=== PATIENT | female | born 1975 | race Caucasian/White ===

== ENCOUNTER → 2021-07-06 13:12 | Outpatient (BNVA) | payer OTHER, SELFPAY | PROVIDERS: PCP Internal Medicine; Visit Provider Nurse Practitioner Family | DX: R06.83 Snoring (principal); R40.0 Somnolence; G35 Multiple sclerosis; Z79.899 Other long term (current) drug therapy | CPT/HCPCS: 99202 ==

== ENCOUNTER → 2021-09-10 13:47 | Outpatient (REF) | payer OTHER, SELFPAY | LOC: HO.SL 13:47 | PROVIDERS: PCP Internal Medicine; Visit Provider Nurse Practitioner Family | DX: R06.83 Snoring (principal); R40.0 Somnolence | CPT/HCPCS: 95806 ==

== ENCOUNTER 2023-10-15 16:42 | Outpatient (AMB) | payer OTHER, SELFPAY ==
--- NOTE | 2023-10-15 11:00 | MHC.OFFVISPS ---
Intake Intake Visit Reasons: Depression Allergies No Known Allergies Allergy (Verified 07/06/21 13:40) HPI- Psychiatric Chief Complaint: Depression HPI Narrative: pt describes feeling depression and anxiety, in order to cope she removes self from situation, easily agitated, no side effects from cymbalta , depression 6 or 7 still can't sit outside, feels blue and gloomy, no SI, no HI, pt reports anxiety - can't do something, heart races and thoughts race, She notices in the summer she feels better, sometimes sleeps all day and up all night for 1 month, 3 days out of 7, sleep is terrible, barely sleeps and wakes up constantly, catches self zoning out depression and anxiety dx especially since MS symptoms interfered with work and caused increased depression in 2014, 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 Counseling provided to the patient/caregiver as outlined below. Addressed patient/caregiver concerns regarding current medication regime including effective adherence. Addressed patient/caregiver concerns regarding diagnosis and prognosis including accuracy of diagnosis, prognosis over time, impact of diagnosis. Addressed patient/caregiver concerns regarding impact of recent stressors. PFSH Family History (Updated 07/06/21 @ 13:44 by RADHA King) Mother Diabetes Social History (Updated 07/06/21 @ 13:43 by RADHA King) Alcohol intake: current Alcohol intake frequency: a few times a month Alcohol type: beer Patient Tobacco Use Status: Never used Tobacco Coding
--- NOTE | 2023-10-15 15:56 | A.OFFPSYCH_ITS ---
Intake Intake Visit Reasons: Depression, JESSENIA (generalized anxiety disorder), Panic anxiety syndrome Allergies No Known Allergies Allergy (Verified 07/06/21 13:40) Medication List - Last Reconciled 10/16/23 by Sabiha Ramirez, BRAN albuterol sulfate mg inhalation Q4H PRN albuterol sulfate 90 mcg/actuation 2 puffs inhalation Q6H PRN azelastine 0.05% 1 drp ophthalmic (eye) BID PRN baclofen 20 mg PO TID clonazepam 0.5 mg PO TID clonazepam 0.5 mg PO TID duloxetine 60 mg PO DAILY fluticasone furoate-vilanterol 200-25 mcg/dose (Breo Ellipta) 1 ea inhalation DAILY modafinil 200 mg PO DAILY oxybutynin chloride ER 5 mg PO DAILY sennosides (senna) 8.6 mg PO DAILY zolpidem 5 mg PO PRN zolpidem 10 mg orally take 1/2 to 1 tablet at bedtime as needed for sleep PRN; HPI- Psychiatric Chief Complaint: Depression, JESSENIA (generalized anxiety disorder), Panic anxiety syndrome HPI Narrative: pt reports she missed 2 days of cymbalta because she ran out. she got a renewed rx fro clonazepam from neurologist; pt reports increased sadness recent due to betrayal by a friend and feeling taken advantage or her generous nature; has loaned friend money several times and has not gotten it back ; adult daughter and family living with her but not helping with the cost of rents and utilities even though the cost has gone up. pt reports getting good support from parents. feels meds help. does not want to change medications today; she is on wait list for therpy; discussed coping with stress of friends and family. 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 No IPLOC no current therapist-on wait list Panic attacks: Yes Agoraphobia: Yes Separation anxiety disorder: No Social phobia: No Specific phobia: No Hypochondriasis: No Body dysmorphic disorder: No Obsessive compulsive disorder: No Generalized anxiety: Yes Post traumatic stress disorder: No Acute stress disorder: No Previous psychiatric history: Yes Previous inpatient psychiatric hospitalization: No Other previous psychiatric treatment programs: none History of suicidal ideation: No History of suicide attempt: No Medically hospitalized: Yes History of self injurious behavior: No History of violence: No Current/previous psychiatrist: [facility] since 2019 Current/previous therapist: lino Ruiz in past Kylah Baker before that - on wait list for new Subjective Subjective Subjective Medication Compliance: Yes Side effects from medications: No Review of Systems Medical Review of Systems: unchanged Mental Status Exam Mental Status Exam Patient Appearance: Well Grooomed and Appropriate Patient Orientation: Person, Place, Time and Situation Level of Consciousness: Awake and Appropriate Patient Behavior: Appropriate and Cooperative Mood Description: Sad Affect Description: Sad Patient Cognition Impaired: No Ability to Follow Directions: Good Speech Pattern: Clear and Coherent Memory Description: Intact Hallucinations: None Delusions: Not Present Thought Process: Intact Thought Content: positive for Intact Judgement: Fair Telehealth Telehealth Telehealth Platform: Other (please specify) ([email or web address] (fka [email or web address])) Location of provider rendering services: practice address Location of patient: address on file Patient Identification confirmed using: Name, : Yes Telehealth method: video Patient verbally consented to treatment: Yes Patient verbally consented to billing insurance company: Yes Patient informed of any privacy concerns related to visit: Yes Minutes spent on Phone/Video with Pt.: 30 Assessment and Plan Assessment & Plan (1) Generalized anxiety disorder: Code(s): F41.1 - Generalized anxiety disorder (2) Panic disorder: Code(s): F41.0 - Panic disorder [episodic paroxysmal anxiety] Plan 48 yo mother with depresssion and anxiety in context of MS and chronic pain Medications: New duloxetine 60 mg PO DAILY 30 caps 3RF zolpidem 10 mg orally take 1/2 to 1 tablet at bedtime as needed for sleep PRN; 30 tabs 0RF sleep clonazepam 0.5 mg PO TID 90 tabs 2RF Counseling and coordination of Care Pt. Self Management counseling: Maintenance-social rhythm, Sleep hygiene, Behavior activation, Cognitive restructuring, General coping skills and Greif counseling Medication management counseling: Effectiveness, Side effects, Dosing range, Duration, Drug interaction and Adherence Diagnosis and Prognosis Counseling: Accuracy of diagnosis, Prognosis over time, Impact of diagnosis on life functions, Impact of family relationship, Pr oblematic behaviors secondary to diagnosis and Adequacy of current interventions Details: I spent 45 minutes reviewing the record, seeing the patient and documenting in the medical record. Counseling provided to the patient/caregiver as outlined below. Addressed patient/caregiver concerns regarding current medication regime including effective adherence. Addressed patient/caregiver concerns regarding diagnosis and prognosis including accuracy of diagnosis, prognosis over time, impact of diagnosis. Addressed patient/caregiver concerns regarding impact of recent stressors. PFSH Medical History (Updated 10/16/23 @ 10:14 by Sabiha Ramirez APRN) Asthma Multiple sclerosis Surgical History (Updated 10/16/23 @ 10:14 by Sabiha Ramirez APRN) History of hip replacement Family History (Updated 07/06/21 @ 13:44 by RADHA King) Mother Diabetes Social History (Updated 07/06/21 @ 13:43 by RADHA King) Alcohol intake: current Alcohol intake frequency: a few times a month Alcohol type: beer Patient Tobacco Use Status: Never used Tobacco Social History: lies with youngest daughter who is on grade school; older daughter and her family recently moved in- very stressful; pts parents are very supportive Substance History: none Trauma History: none reported Coding Level of Care Code Tele Est Pt Level 3 (92238) Tele Therapy 30m w/E&M (69885) Diagnoses Generalized anxiety disorder F41.1 Panic disorder F41.0 Comment CBT to address betrayal nd disappointment; prob solving therapy re; boundary setting
== END 2023-10-15 16:43 | disposition home or self-care (01) ==
LOC: HO.HOP 16:42
PROVIDERS: PCP Internal Medicine; Visit Provider Clinical Nurse Specialist Psychiatric/Mental Health
DX: F41.1 Generalized anxiety disorder (principal); F41.0 Panic disorder [episodic paroxysmal anxiety]
CPT/HCPCS: 90833; 99213

== ENCOUNTER → 2023-10-15 16:42 | Outpatient (BNVA) | payer OTHER, SELFPAY | PROVIDERS: PCP Internal Medicine; Visit Provider Clinical Nurse Specialist Psychiatric/Mental Health ==

== ENCOUNTER 2023-11-10 13:55 | Outpatient (AMB) | payer OTHER, SELFPAY ==
--- NOTE | 2023-11-10 13:43 | MHC.OFFVISPS ---
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 Allergies No Known Allergies Allergy (Verified 07/06/21 13:40) Medication List - Last Reconciled 11/10/23 by Sabiha Ramirez APRN albuterol sulfate mg inhalation Q4H PRN albuterol sulfate 90 mcg/actuation 2 puffs inhalation Q6H PRN baclofen 20 mg PO TID clonazepam 0.5 mg PO TID duloxetine 60 mg PO DAILY fluticasone furoate-vilanterol 200-25 mcg/dose (Breo Ellipta) 1 ea inhalation DAILY modafinil 200 mg PO DAILY montelukast 10 mg PO DAILY oxybutynin chloride ER 5 mg PO DAILY oxybutynin chloride ER 10 mg PO DAILY sennosides (senna) 8.6 mg PO DAILY HPI- Psychiatric Chief Complaint: depression HPI Narrative: Pt reports depression and anxiety continue; she feels better than last appt but still struggling with frequent anxiety; feels low mood, low energy, anhedonia, worry. she dneies SI ro HI. no changes to medical medications or worsenign of medical issues; her older daughter is moving out which will reduce her stress and her older son is moving in and she believes he will be more help than not. 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 No IPLOC no current therapist-on wait list Mental Status Exam Mental Status Exam Patient Appearance: Well Grooomed and Appropriate Patient Orientation: Person, Place, Time and Situation Level of Consciousness: Awake and Alert Patient Behavior: Appropriate Mood Description: Anxious and Sad Affect Description: Anxious and Sad Patient Cognition Impaired: No Ability to Follow Directions: Good Speech Pattern: Clear and Appropriate Memory Description: Intact Hallucinations: None Delusions: Not Present Thought Process: Intact and Goal Oriented Thought Content: positive for Intact and positive for Goal Oriented Judgement: Fair Telehealth Telehealth Telehealth Platform: Other (please specify) ([email or web address]) Location of provider rendering services: practice address Location of patient: address on file Patient Identification confirmed using: Name, : Yes Telehealth method: video Patient verbally consented to treatment: Yes Patient verbally consented to billing insurance company: Yes Patient informed of any privacy concerns related to visit: Yes Minutes spent on Phone/Video with Pt.: 28 Assessment and Plan Assessment & Plan (1) Major depressive disorder, recurrent, moderate: Status: Acute Code(s): F33.1 - Major depressive disorder, recurrent, moderate (2) JESSENIA (generalized anxiety disorder): Status: Acute Code(s): F41.1 - Generalized anxiety disorder Plan increase duloxetine to 90mg (60mg and 30 mg ) increase clonazepam 0.5mg to QID advised to use with care due to risk of sedation; she verbalized an understanding Medications: New duloxetine (Cymbalta) 30 mg PO DAILY 30 caps 2RF Changed From clonazepam 0.5 mg PO TID 90 tabs 2RF To clonazepam 0.5 mg PO QID 120 tabs 2RF Counseling and coordination of Care Medication management counseling: Effectiveness, Side effects, Dosing range, Duration, Drug interaction and Adherence Diagnosis and Prognosis Counseling: Accuracy of diagnosis, Prognosis over time, Impact of diagnosis on life functions, Impact of family relationship, Problematic behaviors secondary to diagnosis and Adequacy of current interventions Details: I spent 35 minutes reviewing the record, seeing the patient and documenting in the medical record. Counseling provided to the patient/caregiver as outlined below. Addressed patient/caregiver concerns regarding current medication regime including effective adherence. Addressed patient/caregiver concerns regarding diagnosis and prognosis including accuracy of diagnosis, prognosis over time, impact of diagnosis. Addressed patient/caregiver concerns regarding impact of recent stressors. PFSH Medical History (Updated 11/10/23 @ 14:30 by Sabiha Ramirez APRN) Asthma Multiple sclerosis Surgical History (Updated 10/16/23 @ 10:14 by Sabiha Ramirez APRN) History of hip replacement Family History (Updated 07/06/21 @ 13:44 by Jordon Estrada [facility]) Mother Diabetes Social History (Updated 07/06/21 @ 13:43 by RADHA King) Alcohol intake: current Alcohol intake frequency: a few times a month Alcohol type: beer Patient Tobacco Use Status: Never used Tobacco Social History: lies with youngest daughter who is on grade school; older daughter and her family recently moved in- very stressful; pts parents are very supportive Substance History: none Trauma History: none reported Coding Level of Care Code Est Pt Level 4 (70048) Diagnoses Major depressive disorder, recurrent, moderate F33.1 JESSENIA (generalized anxiety disorder) F41.1
== END 2023-11-10 13:56 | disposition home or self-care (01) ==
LOC: HO.HOP 13:55
PROVIDERS: PCP Internal Medicine; Visit Provider Clinical Nurse Specialist Psychiatric/Mental Health
DX: F33.1 Major depressive disorder, recurrent, moderate (principal); F41.1 Generalized anxiety disorder
CPT/HCPCS: 99214

== ENCOUNTER → 2023-11-10 13:55 | Outpatient (BNVA) | payer OTHER, SELFPAY | PROVIDERS: PCP Internal Medicine; Visit Provider Clinical Nurse Specialist Psychiatric/Mental Health | DX: F33.1 Major depressive disorder, recurrent, moderate (principal); F41.1 Generalized anxiety disorder | CPT/HCPCS: 99212 ==

== ENCOUNTER 2024-01-06 13:59 | Outpatient (AMB) | payer OTHER, SELFPAY ==
--- NOTE | 2024-01-06 10:47 | MHC.OFFVISPS ---
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 Allergies No Known Allergies Allergy (Verified 07/06/21 13:40) Medication List - Last Reconciled 01/06/24 by Sabiha Ramirez APRN albuterol sulfate mg inhalation Q4H PRN albuterol sulfate 90 mcg/actuation 2 puffs inhalation Q6H PRN baclofen 20 mg PO TID clonazepam 1 mg orally take 1/2 tablet in am, take one tablet at noon and 1 tablet at bedtime in addition to 0.25mg ODT PRN panic; duloxetine 120 mg (2 x 60 mg) PO DAILY fluticasone furoate-vilanterol 200-25 mcg/dose (Breo Ellipta) 1 ea inhalation DAILY modafinil 200 mg PO DAILY montelukast 10 mg PO DAILY oxybutynin chloride ER 5 mg PO DAILY oxybutynin chloride ER 10 mg PO DAILY sennosides (senna) 8.6 mg PO DAILY HPI- Psychiatric Chief Complaint: depression HPI Narrative: pt reports mood much improved since increase in cymbalta; no side effects; less sadness, less anxiety, no SI or HI; family support good Past Psychiatric History: Pt has long hx of depression and anxiety dx, MS symptoms interfered with work and caused increased depression in 2015, 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 No IPLOC no current therapist-on wait list Subjective Subjective Subjective Medication Compliance: Yes Side effects from medications: No Review of Systems Medical Review of Systems: unchanged Mental Status Exam Mental Status Exam Patient Appearance: Appropriate Patient Orientation: Person, Place, Time and Situation Level of Consciousness: Awake and Alert Patient Behavior: Appropriate Mood Description: Calm Patient Cognition Impaired: No Ability to Follow Directions: Good Speech Pattern: Clear Hallucinations: None Delusions: Not Present Thought Process: Intact Thought Content: positive for Intact Judgement: Good Telehealth Telehealth Telehealth Platform: Other (please specify) ([email or web address]) Location of provider rendering services: practice address Location of patient: address on file Patient Identification confirmed using: Name, : Yes Telehealth method: video Patient verbally consented to treatment: Yes Patient verbally consented to billing insurance company: Yes Patient informed of any privacy concerns related to visit: Yes Minutes spent on Phone/Video with Pt.: 20 Assessment and Plan Assessment & Plan (1) JESSENIA (generalized anxiety disorder): Status: Acute Code(s): F41.1 - Generalized anxiety disorder (2) Major depressive disorder, recurrent, moderate: Status: Acute Code(s): F33.1 - Major depressive disorder, recurrent, moderate Plan renew medications continue same regimen return in 6 months call sooner if needed Medications: Changed From clonazepam 1 mg orally take 1/2 tablet in am, take one tablet at noon and 1 tablet at bedtime in addition to 0.25mg ODT PRN panic; 75 tabs 1RF To clonazepam 1 mg PO TID 90 tabs 4RF Refilled duloxetine 120 mg (2 x 60 mg) PO DAILY 60 caps 3RF Counseling and coordination of Care Details: I spent [] minutes reviewing the record, seeing the patient and documenting in the medical record. Counseling provided to the patient/caregiver as outlined below. Addressed patient/caregiver concerns regarding current medication regime including effective adherence. Addressed patient/caregiver concerns regarding diagnosis and prognosis including accuracy of diagnosis, prognosis over time, impact of diagnosis. Addressed patient/caregiver concerns regarding impact of recent stressors. PFSH Medical History (Updated 11/10/23 @ 14:30 by Sabiha Ramirez APRN) Asthma Multiple sclerosis Surgical History (Updated 10/16/23 @ 10:14 by Sabiha Ramirez APRN) History of hip replacement Family History (Updated 07/06/21 @ 13:44 by RADHA King) Mother Diabetes Social History (Updated 07/06/21 @ 13:43 by RADHA King) Alcohol intake: current Alcohol intake frequency: a few times a month Alcohol type: beer Patient Tobacco Use Status: Never used Tobacco Social History: lies with youngest daughter who is on grade school; older daughter and her family recently moved in- very stressful; pts parents are very supportive Substance History: none Trauma History: none reported Coding Level of Care Code Tele Est Pt Level 4 (98202) Diagnoses JESSENIA (generalized anxiety disorder) F41.1 Major depressive disorder, recurrent, moderate F33.1
== END 2024-01-06 14:01 | disposition home or self-care (01) ==
LOC: HO.HOP 13:59
PROVIDERS: PCP Internal Medicine; Visit Provider Clinical Nurse Specialist Psychiatric/Mental Health
DX: F41.1 Generalized anxiety disorder (principal); F33.1 Major depressive disorder, recurrent, moderate
CPT/HCPCS: 99214

== ENCOUNTER → 2024-01-06 13:59 | Outpatient (BNVA) | payer OTHER, SELFPAY | PROVIDERS: PCP Internal Medicine; Visit Provider Clinical Nurse Specialist Psychiatric/Mental Health ==

== ENCOUNTER 2024-07-05 12:03 | Outpatient (AMB) | payer OTHER, SELFPAY ==
--- NOTE | 2024-07-05 10:53 | A.OFFPSYCH_ITS ---
Intake Intake Visit Reasons: depression Clinical Operations Manager Required: No Allergies No Known Allergies Allergy (Verified 07/06/21 13:40) Medication List - Last Reconciled 07/05/24 by Sabiha Ramirez APRN albuterol sulfate mg inhalation Q4H PRN albuterol sulfate 90 mcg/actuation 2 puffs inhalation Q6H PRN baclofen 20 mg PO TID clonazepam 1 mg PO TID duloxetine 120 mg (2 x 60 mg) PO DAILY fluticasone furoate-vilanterol 200-25 mcg/dose (Breo Ellipta) 1 ea inhalation DAILY modafinil 200 mg PO DAILY montelukast 10 mg PO DAILY oxybutynin chloride ER 5 mg PO DAILY oxybutynin chloride ER 10 mg PO DAILY sennosides (senna) 8.6 mg PO DAILY HPI- Psychiatric Chief Complaint: depression HPI Narrative: Pt reports stable mood. she is consistent with cymbalta 60 mg BId and clonzepam 1mg TID. she reports coping well overall; she has less anxiety. she does have trouble falling asleep; she has used ambien which does help her sleep but she is incontinent with it. she would like to try something else for sleep and we discussed a low dose of lunesta which she is in agreement. No SI no HI. 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 No IPLOC no current therapist-on wait list Subjective Subjective Subjective Medication Compliance: Yes Side effects from medications: No Review of Systems Medical Review of Systems: unchanged Mental Status Exam Mental Status Exam Patient Orientation: Person, Place, Time and Situation Level of Consciousness: Awake Patient Behavior: Appropriate Mood Description: Calm Affect Description: Calm Patient Cognition Impaired: No Ability to Follow Directions: Good Speech Pattern: Clear Memory Description: Intact Hallucinations: None Delusions: Not Present Thought Process: Intact and Goal Oriented Thought Content: positive for Intact and positive for Goal Oriented Judgement: Good Telehealth Telehealth Telehealth Platform: Telephone Location of provider rendering services: practice address Location of patient: address on file Patient Identification confirmed using: Name, : Yes Telehealth method: voice only Patient verbally consented to treatment: Yes Patient verbally consented to billing insurance company: Yes Patient informed of any privacy concerns related to visit: Yes Minutes spent on Phone/Video with Pt.: 15 Assessment and Plan Assessment & Plan (1) JESSENIA (generalized anxiety disorder): Status: Acute Code(s): F41.1 - Generalized anxiety disorder (2) Insomnia disorder with non-sleep disorder mental comorbidity: Status: Acute Code(s): G47.00 - Insomnia, unspecified (3) Major depressive disorder, recurrent, moderate: Status: Acute Code(s): F33.1 - Major depressive disorder, recurrent, moderate Plan continue cymbalta 60mg BID continue clonazepam 1 mg TID trial of lunesta 1 mg at bedtime return in 4 months Medications: New eszopiclone (Lunesta) 1 mg PO BEDTIME 30 tabs 3RF Refilled clonazepam 1 mg PO TID 90 tabs 4RF duloxetine 120 mg (2 x 60 mg) PO DAILY 60 caps 3RF Counseling and coordination of Care Pt. Self Management counseling: Mod caffeine/ETOH intake and Sleep hygiene Medication management counseling: Effectiveness, Side effects, Dosing range, Duration, Drug interaction and Adherence Diagnosis and Prognosis Counseling: Accuracy of diagnosis, Prognosis over time, Impact of diagnosis on life functions, Impact of family relationship, Problematic behaviors secondary to diagnosis and Adequacy of current interventions Details: I spent 25 minutes reviewing the record, seeing the patient and documenting in the medical record. Counseling provided to the patient/caregiver as outlined below. Addressed patient/caregiver concerns regarding current medication regime including effective adherence. Addressed patient/caregiver concerns regarding diagnosis and prognosis including accuracy of diagnosis, prognosis over time, impact of diagnosis. Addressed patient/caregiver concerns regarding impact of recent stressors. PFSH Medical History (Updated 07/05/24 @ 11:11 by Sabiha Ramirez APRN) Asthma Multiple sclerosis Surgical History (Updated 10/16/23 @ 10:14 by Sabiha Ramirez APRN) History of hip replacement Family History (Updated 07/06/21 @ 13:44 by RADHA King) Mother Diabetes Social History (Updated 07/06/21 @ 13:43 by RADHA King) Alcohol intake: current Alcohol intake frequency: a few times a month Alcohol type: beer Patient Tobacco Use Status: Never used Tobacco Social History: lies with youngest daughter who is on grade school; older daughter and her family recently moved in- very stressful; pts parents are very supportive Substance History: none Trauma History: none reported Coding Level of Care Code Tele Est Pt Level 3 (38709) Diagnoses JESSENIA (generalized anxiety disorder) F41.1 Insomnia disorder with non-sleep disorder mental comorbidity G47.00 Major depressive disorder, recurrent, moderate F33.1
--- OUTSIDE RECORDS SUMMARY | 2024-07-05 13:43 | XMS_ITS | Clinical Summary ---
Author Organization [facility] Address [address] [place] [address] Phone Care Team Providers Care Divinity Teacher Name Role Phone Shabnam Jernigan MD Primary Care Provider [phone] Allergies No known active allergies Medications albuterol 2.5 mg /3 mL (0.083 %) nebulizer solution Inhale 3 mL (2.5 mg total) by mouth. 05/04/19 22 Active baclofen (LIORESAL) 10 mg tablet Take 2 tablets (20 mg total) by mouth. 10/29/19 22 Active clonazePAM (KlonoPIN) 1 mg tablet TAKE 1/2 TABLET THREE TIMES A DAY 06/08/19 22 Active levocetirizine (XYZAL) 5 mg tablet Take 1 tablet (5 mg total) by mouth. 11/30/19 21 Active modafiniL (PROVIGIL) 200 mg tablet Take 1 tablet (200 mg total) by mouth. 07/06/19 21 Active montelukast (SINGULAIR) 10 mg tablet TAKE 1 TABLET BY MOUTH EVERY DAY AT BEDTIME FOR 360 DAYS 06/16/19 21 Active oxybutynin XL (DITROPAN-XL) 5 mg 24 hr tablet 03/03/20 21 Active sodium chloride 0.9 % parenteral solution 250 mL with ocrelizumab 30 mg/mL solution Infuse into a venous catheter. Active albuterol HFA (PROAIR HFA ; PROVENTIL HFA ; VENTOLIN HFA) 90 mcg/actuation inhaler INHALE 2 PUFFS INTO THE LUNGS EVERY 6 HOURS NEEDED FOR COUGH, WHEEZING, OR SHORTNESS OF BREATH. 8.5 each 5 04/07/20 24 Active fluticasone-umec lidinium-vilante rol (Trelegy Ellipta) 200-62.5-25 mcg inhaler Inhale 1 puff (200 mcg total) by mouth 1 (one) time each day. Rinse mouth with water after use to reduce aftertaste and incidence of candidiasis. Do not swallow. Active azelastine (ASTELIN) 137 mcg (0.1 %) nasal sprayIndications :Multiple sclerosis (CMS/HCC),Modera te persistent asthma, uncomplicated USE 2 SPRAYS IN EACH NARE DAILY FOR 30 DAYS DIRECTED 16 mL 07/02/19 25 025 Active azelastine (ASTELIN) 137 mcg (0.1 %) nasal sprayIndications :Multiple sclerosis (CMS/HCC),Modera te persistent asthma, uncomplicated USE 2 SPRAYS IN EACH NARE DAILY FOR 30 DAYS DIRECTED 16 mL 05/21/19 25 025 Discontinued Active Problems Problem Noted Date Diagnosed Date Atypical squamous cells of u ndetermined significance (ASCUS) on Papanicolaou smear of cervix 02/07/2021 Overview (06/02/2022): 01/2021 PAP ASCUS, + HPV ( Neg 16/18/45) Plan: Per [facility]: repeat Co-testing in one year Fatigue 08/12/2019 Myelopathic pain syndrome 08/12/2019 Spasticity 08/12/2019 Nicotine dependence, uncomplicated 04/01/2019 Primary osteoarthritis of left hip 07/04/2016 Overview (06/02/2022): [facility] 11/11/14 - progressive arthritic changes left hip; consider followup orthopedic consultation and nonemergent left Hip MRI to assess for avascular necrosis. Constipation due to pain medication 06/16/2015 GERD (gastroesophageal reflux disease) 4 Liver lesion 10/11/2013 Overview (06/02/2022): 05/2012 c/w hemangioma Multiple sclerosis 07/14/2012 Overview (06/02/2022): MRI C-spine at [facility] 06/2012 - multiple lesions. Seen by Dr. Garner 01/25/2021 Followed by [address] , 1st floor Recevies Botox injections Asthma 06/09/2012 Anxiety 11/29/2011 Depression 09/05/2011 Encounters Date Type Department Care Team Description 06/22/2024 8:45 AM EST Office Visit Pulmonolgy - [place] [address] [place] [phone] Luz Maria Mayo MD Moderate persistent asthma, unspecified whether complicated (Primary Dx) 05/12/2024 1:30 PM EST Office Visit [facility] - [place] [address] [place] [phone] Ghazala Lowry, VIJAYA Multiple sclerosis (CMS/HCC) (Primary Dx) from Last 3 Months Immunizations Name Administration Dates Next Due Pfizer SARS-CoV-2 COVID-19, mRNA, LNP-S, preservative free 09/02/2020,08/12/2020 Surgical History Surgery Date Site/Laterality Comments OTHER SURGICAL HISTORY 07/16/2016 Left PROCEDURE: NV ARTHRP ACETBLR/PROX FEM PROSTC AGRFT/ALGRFT; COMMENT: [facility] OTHER SURGICAL HISTORY 2016 PROCEDURE: HISTORY OTHER; COMMENT: Intrathecal pump ( Baclofen) HIP SURGERY PROCEDURE:HIP SURGERY BACLOFEN PUMP IMPLANTATION PROCEDURE:BACLOFEN PUMP IMPLANTATION Medical History Medical History Date Comments Depression 09/05/2011 DX:Depression Anxiety 11/29/2011 DX:Anxiety Asthma 06/09/2012 DX:Asthma GERD (gastroesophageal reflux disease) 4 DX:GERD (gastroesophageal reflux disease) Constipation due to pain medication 06/16/2015 DX:Constipation due to pain medication MS (congenital mitral stenosis) DX:MS (congenital mitral stenosis) Multiple sclerosis (CMS/HCC) DX: Multiple sclerosis (HCC) Acute stress reaction DX:Acute s tress reaction Depression DX:Depression Weight loss DX:Weight loss Anxiety DX:Anxiety Asthma DX:Asthma Demyelinating disease (CMS/HCC) 07/13/2012 DX:Demyelinating disease (HCC) Multiple sclerosis (CMS/HCC) 03/16/2013 DX: Multiple sclerosis (HCC) Family History Medical History Relation Name Comments Diabetes Maternal Grandmother Diabetes type I Maternal Grandmother Asthma Mother Diabetes Mother Diabetes type I Mother Asthma Son Breast cancer Neg Hx Colon cancer Neg Hx Heart attack Neg Hx Multiple sclerosis Neg Hx Ovarian cancer Neg Hx Uterine cancer Neg Hx Relation Name Status Comments Brother x3 Alive Father Maternal Grandmother Mother Sister x3 Alive Son Social History Tobacco Use Types Packs/Day Years Used Date Smoking Tobacco: Some Days Smokeless Tobacco: Never Tobacco Cessation:Ready to Q uit: Not Asked; Counseling Given: Not Answered Comments:Smoking 3 cigs daily Alcohol Use Standard Drinks/Week Comments Yes 0 (1 standard drink = 0.6 oz pur e alcohol) Comments Unknown Sex and Gender Information Value Date Recorded Sex Assigned at Not on file Legal Sex Female 2:14 AM EST Gender Identity Not on file Sexual Orientation Not on file Obstetrics History Last Filed Vital Signs Vital Sign Reading Time Taken Comments Blood Pressure 134/80 06/22/2024 8:50 AM EST Pulse 88 06/22/2024 8:50 AM EST Temperature 36.3 ??C (97.4 ??F) 06/22/2024 8:50 AM ES T Respiratory Rate 16 06/22/2024 8:50 AM EST Oxygen Saturation 97% 06/22/2024 8:50 AM EST Inhaled Oxygen Concentration - - Weight 52.7 kg (116 lb 3.2 oz) 06/22/2024 8:50 A M EST Height 157.5 cm (5' 2 ) 06/22/2024 8:50 AM EST Body Mass Index 21.25 06/22/2024 8:50 AM EST Plan of Treatment Upcoming Encounters Date Type Department Care Team (Latest Contact Info) Description 07/21/2024 11:00 AM EDT Ancillary Procedure Pulmonolgy - [place] [address] [place] [phone] Yessica Escalante 07/21/2024 2:45 PM EDT Evaluation [facility] Speech Therapy [address] [place] [phone] Malinda Healy, INSTRUMENT SETTER 08/25/2024 10:00 AM EDT Appointment [facility] - [place] [address] [place] [phone] 08/25/2024 10:30 AM EDT Office Visit [facility] - [place] [address] [place] [phone] Ghazala Lowry, VIJAYA [address] [place] [address] [place] [address] 12/21/2024 9:45 AM EDT Office Visit Pulmonolgy - [place] [address] [place] [phone] Luz Maria Mayo MD [address] [place] [address] Health Maintenance Due Date Last Done Comments Hepatitis A Vaccines (1 of 2 - Risk 2-dose series) 1992 Pneumococcal Vaccine: 50+ Years (2 of 2 - PCV) 02/05/2019 02/05/2018 Pneumococcal Vaccine: Pediatrics (0 to 5 Years) and At-Risk Patients (6 to 64 Years) (2 of 2 - PCV) 02/05/2019 02/05/2018 Breast Cancer Screening 03/03/2021 03/03/2019 Cholesterol Screening (Lipid Panel) 04/05/2022 Colorectal Cancer Screening: Colonoscopy 04/05/2022 Depression Screening 04/05/2022 Medicare Annual Wellness Visit 04/05/2022 Social Influencers of Health Screening 04/05/2022 Zoster Vaccines (1 of 2) 07/10/2023 09/20/2020, 04/0 04/2020 COVID-19 Vaccine ( season) 2023 02/28/2021, 09/02/2020, 08/12/2020 Influenza Vaccine (#1) 2023 2, 04/28/2011, 02/13/2011 Cervical Cancer Screening: Pap Smear 01/26/2024 01/25/2021 DTaP,Tdap,and Td Vaccines (5 - Td or Tdap) 02/06/2028 02/05/2018, 10/31/2015, 05/27/2011, Additional history exists Hepatitis B Vaccines Completed 02/13/2012, 11/06/2011, 10/07/2011 HIV Screening Completed 02/04/2014 Hepatitis C Screening Completed 06/07/2015 Varicella Vaccines Aged Out 09/20/2020, 07/27/2020 No longer eligible based on patient's age to complete this topic HIB Vaccines Aged Out No longer eligi ble based on patient's age to complete this topic HPV Vaccines Aged Out No longer eligi ble based on patient's age to complete this topic IPV Vaccines Aged Out No longer eligi ble based on patient's age to complete this topic MMR Vaccines Aged Out No longer eligi ble based on patient's age to complete this topic Meningococcal ACWY Vaccine Aged Out N o longer eligible based on patient's age to complete this topic Meningococcal B Vacine Aged Out No lo nger eligible based on patient's age to complete this topic RSV Immunization Patients Under 20 months Aged Out No longer eligible based on patient's age to complete this topic Procedures Procedure Name Priority Date/Time Associated Diagnosis Comments PAP SMEAR Routine 01/25/2021 DX MAMMO INCL CAD BI Routine 03/03/2019 2:30 PM EST Nipple discharge Encounter for screening mammogram for malignant neoplasm of breast from Last 3 Months or Most Recently Relevant to Health Maintenance Results * Pap smear (01/25/2021) 01/25/2021 Narrative HISTORICAL TESTING LAB RESULTING AGENCY - 02/02/2021 4:01 PM EDT [id number] THINPREP PAP, IMAGED: ATYPICAL SQUAMOUS CELLS OF UNDETERMINED SIGNIFICANCE (ASCUS) . NAPOLEON IS PRESENT. MILLI MILTON , RADHA(ASCP) (CASE SCREENED 01 31 2021) NOEL YIN M.D. , PATHOLOGIST (CASE ELECTRONICALLY SIGNED 01 31 2021) RESULT OF APTIMA HIGH RISK HPV ASSAY: HIGH RISK HPV: ??POSITIVE (SEROTYPES 16,18,31,33,35,39,45,51,52,56,58,59,66,68) RESULTS OF APTIMA HPV 16 AND 18/45 GENOTYPE ASSAY: HPV 16: ??NEGATIVE HPV 18/45: ??NEGATIVE COMPLETED ON 2021-01-30 ADEQUACY: SATISFACTORY ENDOCERVICAL/TRANSFORMATION ZONE COMPONENT PRESENT. SOURCE: THINPREP PAP HPV ANY DX: ??REFLEX 16 AND 18, CERVICAL, IMAGED CLINICAL INFORMATION: HPV ANY DIAGNOSIS. HORMONES, Z12.4 Donna Johnson [facility] LAB CYTOLOGY ORDERABLES Final Result HISTORICAL TESTING LAB RESULTING AGENCY * DX MAMMO INCL CAD BI (03/03/2019 2:30 PM EST) Anatomical Region Laterality Modality Mammography 02/25/2019 11:1 7 AM EDT Narrative 03/03/2019 2:51 PM EST This is a summary report. The complete report is available in the patient's medical record. If you cannot access the medical record, please contact the sending organization for a detailed fax or copy. History: Left nipple discharge. Diagnostic bilateral mammography and limited left breast ultrasound: This is a baseline examination. ??In addition to standard screening views, a true lateral view of the left breast as well as a compression MLO view were performed both due to the history of discharge as well as to evaluate a question focal density in the posterior left breast on the screening MLO view. ??The breasts consist of a mixture of fatty and fibroglandular elements. ??There is no persistent focal abnormality. ??There are no significant asymmetries. ??There are no suspicious masses or microcalcifications. Subareolar left breast ultrasound was performed. ??The breast architecture is sonographically normal. ??There is no evidence of cyst, nodule, mass or abnormal ducts. Impression: Negative bilateral diagnostic mammography and limited left breast ultrasound. BI-RADS Category 1, negative. 5 year breast cancer risk assessment 0.4 % Lifetime breast cancer risk assessment 4.5 % Breast cancer risk category Low (<15%) Procedure Note Delfin Enriquez - 04/16/2022 This is a summary report. The complete report is available in thepatient's medical record. If you cannot access the medical record, pleasecontact the sending organization for a detailed fax or copy. History: Left nipple discharge. Diagnostic bilateral mammography and limited left breast ultrasound: Thisis a baseline examination. In addition to standard screening views, atrue lateral view of the left breast as well as a compression MLO viewwere performed both due to the history of discharge as well as to evaluatea question focal density in the posterior left breast on the screening MLOview. The breasts consist of a mixture of fatty and fibroglandularelements. There is no persistent focal abnormality. There are nosignificant asymmetries. There are no suspicious masses ormicrocalcifications. Subareolar left breast ultrasound was performed. The breast architectureis sonographically normal. There is no evidence of cyst, nodule, mass orabnormal ducts. Impression: Negative bilateral diagnostic mammography and limited leftbreast ultrasound. BI-RADS Category 1, negative. 5 year breast cancer risk assessment 0.4 % Lifetime breast cancer risk assessment 4.5 % Breast cancer risk category Low (<15%) Glory LILLY IMG BI PROCEDURES Final Result from Last 3 Months or Most Recently Relevant to Health Maintenance Insurance [facility] MEDIC[facility] Member Subscriber Plan / Payer (Ef fective 2024-Present) Name:Divine Bynum Relation to Subscriber:Self Name:Divine Bynum Payer ID:[id number] Group ID:Not on file Type:Not on file Address: [address] [place] [id number] Advance Directives Documents on File Type Date Recorded Patient Front End Web Developer Expl anation Health Care Decision (hx) 03/03/2024 4:24 PM Health Care Decision (hx) 05/20/2023 AD RANDHAWA DIRECTIVE Health Care Decision (hx) 05/20/2023 AD RANDHAWA DIRECTIVE Health Care Decision (hx) 05/20/2023 AD RANDHAWA DIRECTIVE Health Care Decision (hx) 05/20/2023 AD RANDHAWA DIRECTIVE Health Care Decision (hx) 05/20/2023 AD RANDHAWA DIRECTIVE Care Teams Divinity Teacher Relationship Specialty Start Date End Date Shabnam Jernigan MD [address] [place] [phone] PCP - General Internal Medicine 03/04/24
--- OUTSIDE RECORDS SUMMARY | 2024-07-05 13:43 | XMS_ITS ---
Author Name [facility] Organization Unknown History of Medication Use Medication Directions Dispensed Refills Start Date End Date Status clonazePAM (KlonoPIN) 1 MG tablet 1/2 tab am, 1 tab @ 2:00, 1/2 tab at bedtime 2 active ocrelizumab (OCREVUS) 600 mg in sodium chloride (NS) 0.9 % 500 mL IVPB 600 mg, Intravenous, Once, On Fri02/25/24 at 0930, For 1 doseMust use in-line 0.22 micron filter. ??- Infusion Rate for first full 600 mg dose or reaction with previous infusion: Start at 40 mL/hr. Increase by 40 mL/hr every 30 minutes. Maximum rate: 200 mL/hr. Duration: 3.5 hours or longer.??- Infu 4 02/25/20 completed azelastine (OPTIVAR) 0.05 % ophthalmic solution 1 active methylPREDNISolone sodium succinate (SOLU-Medrol) injection 125 mg 125 mg, Intravenous, Once, On Fri09/16/23 at 1100, For 1 doseGive 30 minutes prior to ocrelizumab.??Admi nister over 2-3 minutes 4 09/16/19 completed fluticasone-vilanterol (Breo Ellipta) 100-25 MCG/INH inhaler 1 inhalation. by Inhaled route daily. active DULoxetine (CYMBALTA) DR capsule 60 mg Take 90 mg by mouth daily. active ocrelizumab (OCREVUS) 300 mg in sodium chloride (NS) 0.9 % 250 mL IVPB 300 mg, Intravenous, Once, On Fri09/16/23 at 1100, For 1 doseMust use in-line 0.22 micron filter. Administer though a dedicated IV line.??First 2 infusions (300 mg dose): Begin infusion at 30 mL/hr. Increase by 30 mL/hr every 30 minutes to a maximum rate of 180 ml/hr. Infusion duration: 2.5 hours or 05/07/202 4 09/16/19 24 completed ergocalciferol (VITAMIN D2) capsule 59425 units Take 1 capsule (50,000 Units total) by mouth once a week. 3 active sodium chloride 0.9% (NS) infusion 500 mL, Intravenous, Once, On Fri02/25/24 at 1000, For 1 doseAdminister at 999 mL/hr. 4 02/25/20 24 completed modafinil (PROVIGIL) 200 MG tablet Take 1 tablet (200 mg total) by mouth daily. 2 active Problems Problem Status Onset Date Problem Type Date of Resoluti on Source MS (multiple sclerosis) active 2020-03-14 ProblemAct CTTHNEMG Fatigue active 2019-08-12 ProblemAct [facility] Myelopathic pain syndrome active 2019-08-12 ProblemAct [facility] Spasticity active 2019-08-12 ProblemAct CTTHNEM G Depression active 2019-08-12 ProblemAct CTTHNEM G
--- OUTSIDE RECORDS SUMMARY | 2024-07-05 13:43 | XMS_ITS | Clinical Summary ---
Author Organization [facility] Address [address] [place] [address] Care Team Providers Care Semiconductor Lab Technician Name Role Phone Shabnam Jernigan MD Primary Care Provider [phone] Allergies No known active allergies Medications Medication Sig Dispensed Refills Start Date End Date Status DULoxetine (CYMBALTA) DR capsule 60 mg Take 90 mg by mouth daily. 0 Active montelukast (SINGULAIR) 10 MG tablet TAKE 1 TABLET BY MOUTH EVERY DAY AT BEDTIME FOR 360 DAYS 0 06/16/2020 Active Ocrelizumab (OCREVUS IV) Inject into the vein. 0 Active fluticasone-vilanter ol (Breo Ellipta) 100-25 MCG/INH inhaler 1 inhalation. by Inhaled route daily. 0 Active azelastine (OPTIVAR) 0.05 % ophthalmic solution 0 04/02/2021 Active clonazePAM (KlonoPIN) 1 MG tablet 1/2 tab am, 1 tab @ 2:00, 1/2 tab at bedtime 0 06/08/2021 Active ergocalciferol (VITAMIN D2) capsule 40219 units Take 1 capsule (50,000 Units total) by mouth once a week. 12 capsule 0 04/08/2023 Active baclofen (LIORESAL) 10 MG tablet TAKE 2 TABLETS BY MOUTH 3 TIMES A DAY 540 tablet 5 06/24/2023 Active modafinil (PROVIGIL) 200 MG tablet 1 po bid 60 tablet 5 02/09/2024 Active Active Problems Problem Noted Date Diagnosed Date MS (multiple sclerosis) 03/14/2020 Depression 08/12/2019 Myelopathic pain syndrome 08/12/2019 Depression 08/12/2019 Spasticity 08/12/2019 Fatigue 08/12/2019 Family History Medical History Relation Name Comments Diabetes type I Maternal Grandmother Diabetes type I Mother Multiple sclerosis Neg Hx Relation Name Status Comments Maternal Grandmother Mother Social History Tobacco Use Types Packs/Day Years Used Date Smoking Tobacco: Some Days Smokeless Tobacco: Never Tobacco Cessation:Ready to Q uit: Not Asked; Counseling Given: Not Answered Alcohol Use Standard Drinks/Week Comments Yes 0 (1 standard drink = 0.6 oz pur e alcohol) 12 a week Sex and Gender Information Value Date Recorded Sex Assigned at Female 07/12/2020 10:52 AM EDT Gender Identity Not on file Sexual Orientation Not on file Job Start Date Occupation Industry Not on file Not on file Not on file Last Filed Vital Signs Vital Sign Reading Time Taken Comments Blood Pressure 138/79 02/25/2024 2:40 PM EDT Pulse 54 02/25/2024 2:40 PM EDT Temperature 36.2 ??C (97.2 ??F) 02/25/2024 2:40 PM ED T Respiratory Rate 16 02/25/2024 2:40 PM EDT Oxygen Saturation 95% 02/25/2024 2:40 PM EDT Inhaled Oxygen Concentration - - Weight 50.8 kg (112 lb) 11/24/2023 1:17 PM EDT Height 157.5 cm (5' 2 ) 08/21/2023 12:20 PM EDT Body Mass Index 20.49 08/21/2023 12:20 PM EDT Plan of Treatment Health Maintenance Due Date Last Done Comments Hepatitis C Screening 1973 Depression Screening 1985 BMI Counseling 07/10/1991 Preventative Health Evaluation 07/10/1991 Tobacco Cessation Counseling 07/10/1991 Cervical Cancer Screening (Pap Smear) 1994 Colon Cancer Screening (Colonoscopy) 2018 Pneumococcal Vaccine (2 of 2 - PCV) 02/05/2019 02/05/2018 Breast Cancer Screening (Mammogram) 07/10/2023 Shingrix-Zoster Vaccine (1 of 2) 07/10/2023 COVID-19 Vaccine (3 - 2023- season) 2023 09/02/2020, 08/12/2020 Influenza Vaccine (#1) 2023 DTap / Tdap / Td (5 - Td or Tdap) 02/06/2028 02/05/2018, 10/31/2015, 05/27/2011, Additional history exists Hepatitis B Vaccines Completed 02/13/2012, 11/06/2011, 10/07/2011 RSV Ped < 20 months Aged Out No longe r eligible based on patient's age to complete this topic Care Teams Semiconductor Lab Technician Relationship Specialty Start Date End Date Shabnam Jernigan MD [address] [place] [address] [phone] PCP - General Internal Medicine 10/23/22
--- OUTSIDE RECORDS SUMMARY | 2024-07-05 13:43 | XMS_ITS | Clinical Summary ---
Author Organization [facility] Address [address] [place] [address] Care Team Providers Care Clubhouse Manager Name Role Phone Erin López A Primary Care Provider Unavai lable Allergies No known active allergies Medications VENTOLIN HFA 90 mcg/actuation inhaler INHALE 2 PUFFS INTO THE LUNGS EVERY 6 HOURS NEEDED FOR COUGH, WHEEZING OR SHORTNESS OF BREATH. [address] (CYMBALTA) 30 mg capsule 9 Active clonazePAM (KlonoPIN) 1 mg tablet Take 1 mg by mouth. 3 Active azelastine (ASTELIN) 137 mcg (0.1 %) nasal spray Administer 2 sprays into affected nostril(s). 2 Active Trelegy Ellipta 200-62.5-25 mcg blister with device SMARTSI Puff(s) Via Inhaler Twice Daily 3 Active modafiniL (PROVIGIL) 200 mg tablet Take 200 mg by mouth. 3 Active cholecalciferol (VITAMIN D3) 2,000 unit capsuleIndicati ons:Vitamin D deficiency Take 1 capsule (2,000 Units total) by mouth once a day. 90 capsule 1 3 Active oxybutynin XL (DITROPAN XL) 10 mg tablet TAKE 1 TABLET BY MOUTH EVERY DAY 90 tablet 1 4 Active Active Problems Problem Noted Date Diagnosed Date Neurogenic bladder 01/27/2023 Assessment & Plan (01/27/2023 4:20 PM EDT): PLAN: 1. We will start oxybutynin at night. Presence of intrathecal baclofen pump 05/01/2022 Transient alteration of awareness 12/22/2019 Assessment & Plan (04/17/2020 4:50 PM EST): PLAN: 1. We discussed obtaining EEG to r/o possibility of seizures. Assessment & Plan (12/22/2019 9:40 AM EDT): PLAN: 1. We discussed obtaining EEG to r/o possibility of seizures. Cognitive changes 12/22/2019 Assessment & Plan (04/17/2020 4:50 PM EST): PLAN: 1. We will follow up results of neuro-psychologic testing. 2. We will monitor after IV Methylprednisolone. Assessment & Plan (12/22/2019 9:45 AM EDT): PLAN: 1. We will proceed with improvement of sleep to formally assess cognitive changes. 2. We will obtain metabolic work-up to rule out reversible etiologies of cognitive decline. 3. We discussed referral to neuropsychologic testing. Vitamin D deficiency 11/29/2019 Assessment & Plan (01/27/2023 4:19 PM EDT): PLAN: 1. Continue with Vitamin D. Assessment & Plan (04/17/2020 4:49 PM EST): PLAN: 1. Continue with Vitamin D. Perimenopause 11/29/2019 Word finding problem 04/06/2018 Assessment & Plan (05/18/2019 4:41 PM EST): PLAN: 1. We will obtain metabolic work-up to rule out reversible etiologies of cognitive decline. 2. We will refer her to neuropsychologic testing. Assessment & Plan (12/28/2018 8:35 PM EDT): PLAN: 1. We discussed neuropsychologic testing if symptoms worsen. Assessment & Plan (04/06/2018 2:29 PM EST): PLAN: 1. We discussed a positive neuropsychologic testing if symptoms do not improve after the rituximab infusion. Pre-op exam 05/01/2016 Foot-drop 11/08/2015 Gait disturbance 06/07/2015 Assessment & Plan (12/22/2019 9:08 AM EDT): PLAN: 1. We will refer her to physical therapy. Assessment & Plan (05/18/2019 4:41 PM EST): PLAN: 1. We discussed restarting the Ampyra once a day to see if it improves her gait. 2. We will refer her to physical therapy. Assessment & Plan (12/28/2018 8:38 PM EDT): PLAN: 1. We will start Ampyra to improve gait speed and fatigue. Depression 12/15/2014 Apnea, sleep 04/06/2014 Multiple sclerosis, relapsing-remitting 02/09/20 14 Assessment & Plan (01/27/2023 4:18 PM EDT): PLAN: 1. We will evaluate her in person to assess progression of her disability scores as well as physical exam. 2. We will discuss restarting disease modifying therapy if there is progression on disease. 3. We will obtain MRI of the brain and cervical spine. Assessment & Plan (04/17/2020 4:49 PM EST): PLAN: 1. We discussed changing therapy to Ocrelizumab due to progression of symptoms. We will also proceed with 3 days of IV Methylprednisolone. 2. We will follow results of MRI of the Brain and Cervical Spine. 3. We discussed referral to Physical Therapy. 4. Continue with Vitamin D supplementation. Assessment & Plan (12/22/2019 9:08 AM EDT): PLAN: 1. We will continue with rituximab infusions. We will monitor closely for signs of progression after the next dose. 2. We will obtain an MRI of the brain and cervical to evaluate radiological study of her disease. 3. We discussed referral to Physical Therapy. 4. Continue with Vitamin D supplementation. Assessment & Plan (05/18/2019 4:44 PM EST): PLAN: 1. We will continue with rituximab infusions. We will decrease the interval to 5 months. 2. We will obtain an MRI of the brain and cervical to evaluate radiological study of her disease. 3. We discussed referral to Physical Therapy. 4. Continue with Vitamin D supplementation. Assessment & Plan (12/28/2018 8:37 PM EDT): PLAN: 1. We will continue with rituximab infusions. We will decrease the interval to 5 months. 2. We will obtain an MRI of the brain and cervical spine next year. 3. We discussed referral to Physical Therapy. 4. Continue with Vitamin D supplementation. Assessment & Plan (07/31/2018 6:22 PM EDT): PLAN: 1. We will continue with rituximab infusions due to good response to treatment, we will decrease interval to every 5 months. 2. We recommend continuing vitamin D supplementation as well as physical activity. 3. We will obtain an MRI of the brain and cervical spine next year. Assessment & Plan (04/06/2018 2:27 PM EST): PLAN: 1. We will proceed with the next rituximab infusion as soon as possible as she is overdue. We discussed the importance of receiving the medication on time. 2. We recommend continuing vitamin D supplementation as well as physical activity. 3. We will obtain an MRI of the brain and cervical spine next year. 4. We will monitor closely after this infusion to discuss decrease interval to 5 months. Assessment & Plan (01/23/2018 12:44 PM EDT): PLAN: 1. We will proceed with the next rituximab infusion as soon as possible as she is overdue. 2. We recommend continuing vitamin D supplementation as well as physical activity. 3. We will obtain an MRI of the brain and cervical spine to evaluate radiological stability of her disease. 4. We will monitor closely after this infusion to discuss decrease interval to 5 months. Assessment & Plan (09/08/2017 12:52 PM EDT): PLAN: 1. We will decrease the interval of Rituximab to every 5 months due to recurrence of symptoms. 2. We recommend continuing vitamin D supplementation as well as physical activity. 3. We will obtain an MRI of the brain and cervical spine to evaluate radiological stability of her disease. 4. We will refer her to PT Assessment & Plan (04/04/2017 8:28 PM EST): PLAN: 1. We will continue with rituximab infusions I will proceed with the next dose as soon as possible due to progression of symptoms. 2. We recommend continuing vitamin D supplementation as well as physical activity. 3. We will obtain an MRI of the brain and cervical spine to evaluate radiological stability of her disease. Fatigue 02/08/2014 Assessment & Plan (12/22/2019 9:10 AM EDT): PLAN: 1. We discussed sleep hygiene techniques. 2. We will start Trazodone QHS to help with insomnia. Numbness 02/08/2014 Spasticity 02/08/2014 Assessment & Plan (01/27/2023 4:19 PM EDT): PLAN: 1. Continue follow up with [facility]. 2. She will continue with Baclofen TID Assessment & Plan (04/17/2020 4:49 PM EST): PLAN: 1. Continue follow up with [facility]. 2. She will continue with Baclofen TID Assessment & Plan (12/22/2019 9:11 AM EDT): PLAN: 1. We will discuss adjustment of the pump dose. 2. She will continue with Baclofen TID Assessment & Plan (05/18/2019 4:45 PM EST): PLAN: 1. We change the dose of the bolus from 4 AM to 3 AM and increase the bolus from 37 mcg to 40 mcg. 24-hour dose was increased to 817.8 mcg/day. Increase by 0.36%. Assessment & Plan (12/28/2018 8:39 PM EDT): PLAN: 1. We will discuss with [facility] adjustment of the bolus at 4 AM to improve the spasticity in the morning. Assessment & Plan (07/31/2018 6:22 PM EDT): PLAN: 1. We will increase the dose of baclofen pump by 5% due to worsening spasticity on today's evaluation. Assessment & Plan (04/06/2018 2:28 PM EST): PLAN: 1. We will discuss with Antonio Noel regarding the possibility of a bolus in the afternoon. Assessment & Plan (01/23/2018 12:53 PM EDT): PLAN: 1. We will obtain a UA to rule out infection causing worsening of spasticity. 2. We increased the basal rate for the pump by 9%. We will instruct Antonio Noel to evaluate response to the increase. Basal rate 26.3 mcg/hour, bolus 30.0 mcg at 5:30 AM for 10 minutes. Daily dose 657.0 mcg/day. Estimated FÉLIX 16 months. [place] volume 15.5 mL. Low reservoir alarm date 03/05/2018. Assessment & Plan (09/08/2017 12:52 PM EDT): PLAN: 1. We discuss the possibility of a AM bolus to improve the morning spasticity. Assessment & Plan (04/04/2017 8:29 PM EST): PLAN: 1. We increase the dose of baclofen by 10%. 2. We will decrease the oral dose of baclofen to 10 mg in the morning, 5 mg at noon, 10 mg at night. 3. We will follow-up in April for pump refill. Family History Medical History Relation Name Comments Diabetes Mother Osteoporosis Neg Hx Relation Name Status Comments Mother Social History Tobacco Use Types Packs/Day Years Used Date Smoking Tobacco: Former Smokeless Tobacco: Never Comments:: Alcohol Use Standard Drinks/Week Comments Yes 0 (1 standard drink = 0.6 oz pur e alcohol) Comments Unknown Sex and Gender Information Value Date Recorded Sex Assigned at Female 12/21/2019 4:11 PM EDT Legal Sex Female 6:30 PM EDT Gender Identity Female 12/21/2019 4:11 PM EDT Sexual Orientation Straight 12/21/2019 4: 11 PM EDT Last Filed Vital Signs Vital Sign Reading Time Taken Comments Blood Pressure 143/96 08/26/2022 11:15 AM EDT Pulse 119 08/26/2022 11:15 AM EDT Temperature 36.4 ??C (97.6 ??F) 08/26/2022 11:15 AM E DT Respiratory Rate 17 08/26/2022 11:15 AM EDT Oxygen Saturation 91% 08/26/2022 11:15 AM EDT Inhaled Oxygen Concentration - - Weight 65 kg (143 lb 4.8 oz) 03/17/2020 10:47 AM EST Height 154.9 cm (5' 1 ) 12/04/2016 5:16 PM EDT Body Mass Index 27.08 12/04/2016 5:16 PM EDT Plan of Treatment Health Maintenance Due Date Last Done Comments Cologuard 1973 Colon Cancer Screening 1973 Colonoscopy 1973 FOBT / Fit Test 1973 HPV and Pap Smear 1973 Sigmoidoscopy 1973 Hepatitis B Vaccines (1 of 3 - 19+ 3-dose series) 1992 Mammogram 2013 Pneumococcal Vaccine: 50+ Ye ars (2 of 2 - PCV) 02/05/2019 02/05/2018 CT Lung Cancer Screening (Baseline) 07/10/2023 Zoster Vaccines (1 of 2) 07/10/2023 09/20/2020, 04/0 04/2020 COVID-19 Vaccine (4 - 2023-2 5 season) 2023 02/28/2021, 09/02/2020, 08/12/2020 Influenza Vaccine (#1) 2023 2, 04/28/2011, 02/13/2011 Cervical Cancer Screening 01/26/2024 Pap Smear 01/26/2024 01/25/2021 Alcohol/Substance Use Screening 04/28/2024 Depression Evaluation 04/28/2024 Social Drivers of Health Malia ual Screening 04/28/2024 DTaP,Tdap,and Td Vaccines (5 - Td or Tdap) 02/06/2028 02/05/2018, 10/31/2015, 05/27/2011, Additional history exists RSV Vaccine (60+ years old a nd patients) (1 - 1-dose 75+ series) 2048 HIV Screening Completed 06/07/2015, 02/04/2014 Hepatitis C Screening Completed 06/07/2015, 014 Procedures * Due to [place] blinkbox law, this organization might not be sharing negative HIV tests. Procedure Name Priority Date/Time Associated Diagnosis Comments HEPATITIS C ANTIBODY W/REFLEX TO HCV RNA, QUANTITATIVE PCR Routine 06/07/2015 2:47 PM EST CD4 COUNTS Routine 02/04/2014 12:03 PM EDT from Last 3 Months or Most Recently Relevant to Health Maintenance Results * Due to [place] blinkbox law, this organization might not be sharing negative HIV tests. * Hepatitis C Antibody w/Reflex to HCV RNA, Quantitative PCR (06/07/2015 2:47 PM EST) Hepatitis C Antibody NON-REACTI VE NON-REACT [facility] Signal To Cut-Off 0.02 <1.00 [facility] 06/07/2015 2:47 PM EST 06/07/2015 4:03 PM EST us Naomi Almendarez MD LAB BLOOD ORDERABLE S Final Result [facility] from Last 3 Months or Most Recently Relevant to Health Maintenance [place] [address] [place] [id number] [employer] Care Teams Clubhouse Manager Relationship Specialty Start Date End Date Erin López PCP - General 11/14/16
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
--- OUTSIDE RECORDS SUMMARY | 2024-07-05 13:43 | XMS_ITS | Encounter Summary ---
Author Organization [facility] Address [address] [place] [address] Care Team Providers Care Tool Technician Name Role Phone Shabnam Jernigan MD Primary Care Provider [phone] Reason for Referral * Therapy (Routine) - Authorized Specialty Diagnoses / Procedures Referred By Virginia ny Referred To Contact Pulmonology Diagnoses Moderate persistent asthma, unspecified whether complicated Procedures Pulmonary function testing: Spirometry with Bronchodilator, Carbon Monoxide Diffusing Capacity Luz Maria Mayo MD [address] [address] Phone: tel: [facility]: [facility] [address] [address] Phone: tel: fax: Referral ID Status Reason Start Date Expiration Date V isits Requested Visits Authorized [id number] Authorized 06/22/2024 06/22/2025 1 1 Reason for Visit * Reason Comments Asthma F/u asthma Encounter Details Date Type Department Care Team ([facility] Contact Info) Description 06/22/2024 8:45 AM EST Office Visit [facility] [address] [phone] Luz Maria Mayo MD [address] [address] Moderate persistent asthma, unspecified whether complicated (Primary Dx) Social History Tobacco Use Types Packs/Day Years [...] Mass Index 21.25 06/22/2024 8:50 AM EST documented in this encounter Progress Notes * Luz Maria Mayo MD - 06/22/2024 8:45 AM EST ADULT PULMONARY CONSULT CHIEF COMPLAINT or REASON FOR CONSULTATION: Asthma (F/u asthma) Divine Bynum is a 48 y.o. years old, female with a history of asthma. History of Present Illness The patient is a 48-year-old female who presents for follow up of asthma. She reports no recent exacerbations of her condition. She maintains an active lifestyle, including regular outdoor walks. She has been smoking since she was 16 years old, approximately half a pack a day for less than 20 pack years. She continues to smoke casually when drinking wine or beer and alsosmokes marijuana. She believes that environmental irritants, such as those found in the air, trigger her coughing episodes. She has a dog and a cat at home. Her current medication regimen includes Trelegy, which she finds particularly beneficial during episodes of itching, wheezing, and coughing. She also utilizes albuterol and Ventolin, with the latter being used once or twice daily. Additionally, she employs an asthma pump once or twice daily when she experiences chest wheezing. SOCIAL HISTORY The patient admits to smoking casually when drinking wine or beer and also smokes marijuana. She has a dog and a cat at home. MEDICATIONS Trelegy, albuterol, Ventolin ALLERGIES: No Known Allergies ACTIVE MEDICATIONS: Outpatient Medications Marked as Taking for the 06/22/24 encounter (Office Visit) with Luz Maria Mayo MD Medication Sig Dispense Refill albuterol 2.5 mg /3 mL (0.083 %) nebulizer solution Inhale 3 mL (2.5 mg total) by mouth. albuterol HFA (PROAIR HFA ; PROVENTIL HFA ; VENTOLIN HFA) 90 mcg/actuation inhaler INHALE 2 PUFFS INTO THE LUNGS EVERY 6 HOURS NEEDED FOR COUGH, WHEEZING, OR SHORTNESS OF BREATH. 8.5 each 5 baclofen (LIORESAL) 10 mg tablet Take 2 tablets (20 mg total) by mouth. clonazePAM (KlonoPIN) 1 mg tablet TAKE 1/2 TABLET THREE TIMES A DAY knbddqigyws-mtnksgbkefbw-imxoxrdnxh (Trelegy Ellipta) 200-62.5-25 mcg inhaler Inhale 1 puff (200 mcg total) by mouth 1 (one) time each day. Rinse mouth with water after use to reduce aftertaste and incidence of candidiasis. Do not swallow. levocetirizine (XYZAL) 5 mg tablet Take 1 tablet (5 mg total) by mouth. modafiniL (PROVIGIL) 200 mg tablet Take 1 tablet (200 mg total) by mouth. montelukast (SINGULAIR) 10 mg tablet TAKE 1 TABLET BY MOUTH EVERY DAY AT BEDTIME FOR 360 DAYS oxybutynin XL (DITROPAN-XL) 5 mg 24 hr tablet sodium chloride 0.9 % parenteral solution 250 mL with ocrelizumab 30 mg/mL solution Infuse into a venous catheter. PROVIDER ATTESTS THAT THE MEDICATION LIST WAS OBTAINED, REVIEWED AND UPDATED. REVIEW OF SYSTEMS: GENERAL: No wt lost or fever ENT: +snoring Eye: RESPIRATORY: + cough, wheezing and dyspnea CARDIOVASCULAR: No chest pain, leg swelling or palpitations GI: No abdominal discomfort, MUSCULOSKELETAL: +backpain HEMATOLOGY/LYMPHOLOGY No prolonged bleeding, easy bruisability ENDOCRINE: no DM NEURO: No focal weakness : Psych: no depression PAST MEDICAL HISTORY: Patient Active Problem List Diagnosis Date Noted Atypical squamous cells of undetermined significance (ASCUS) on Papanicolaou smear of cervix 02/07/2021 Fatigue 08/12/2019 Myelopathic pain syndrome 08/12/2019 Spasticity 08/12/2019 Nicotine dependence, uncomplicated 04/01/2019 Primary osteoarthritis of left hip 07/04/2016 Constipation due to pain medication 06/16/2015 GERD (gastroesophageal reflux disease) 12/03/2013 Liver lesion 10/11/2013 Multiple sclerosis (CMS/HCC) 07/14/2012 Asthma 06/09/2012 Anxiety 11/29/2011 Depression 09/05/2011 Past Surgical History: Procedure Laterality Date BACLOFEN PUMP IMPLANTATION PROCEDURE:BACLOFEN PUMP IMPLANTATION HIP SURGERY PROCEDURE:HIP SURGERY OTHER SURGICAL HISTORY Left 07/16/2016 PROCEDURE: WI ARTHRP ACETBLR/PROX FEM PROSTC AGRFT/ALGRFT; COMMENT: UMass OTHER SURGICAL HISTORY 2017 PROCEDURE: HISTORY OTHER; COMMENT: Intrathecal pump ( Baclofen) FAMILY HISTORY: Family History Problem Relation Name Age of Onset Diabetes Mother Asthma Mother Diabetes Maternal Grandmother Asthma Son Breast cancer Neg Hx Ovarian cancer Neg Hx Uterine cancer Neg Hx Colon cancer Neg Hx Heart attack Neg Hx Diabetes type I Mother Diabetes type I Maternal Grandmother Multiple sclerosis Neg Hx OCCUPATION OR OCCUPATION EXPOSURE: SOCIAL HISTORY Social History Socioeconomic History Marital status: Single Spouse name: Not on file Number of children: Not on file Years of education: Some College Highest education level: Not on file Occupational History Not on file Tobacco Use Smoking status: Some Days Smokeless tobacco: Never Tobacco comments: Smoking 3 cigs daily Substance and Sexual Activity Alcohol use: Yes Drug use: Yes Types: Marijuana/Cannabis Sexual activity: Not on file Other Topics Concern Not on file Social History Narrative 03/17/12 - Children: 20, 7, 5, 8 months, all living with her[facility]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 01/25/2021 Disability due toMS IMMUNIZATION: Immunization History Administered Date(s) Administered Pfizer SARS-CoV-2 COVID-19, mRNA, LNP-S, preservative free 08/12/2020, 09/02/2020, 02/28/2021 PHYSICAL EXAM: Visit Vitals BP 134/80 (BP Location: Left arm, Patient Position: Sitting, BP Cuff Size: Adult) Pulse 88 Temp 36.3 ??C (97.4 ??F) (Temporal) Resp 16 Ht 1.575 m (62 ) Wt 52.7 kg (116 lb 3.2 oz) SpO2 97% BMI 21.25 kg/m?? Smoking Status Some Days BSA 1.52 m?? APPEARANCE: Alert and in no acute distress. Thin, looks older, chronically ill appearing EYES: Conjunctiva and sclera normal. NOSE/SINUS: Nares normal. Septum midline. Mucosa . MOUTH/THROAT: no erythema or exudates. Mallampati class 2 NECK: Neck supple, thyroid symmetric and of normal size. HEART: RRR with normal S1 and S2, no murmurs, no gallops LUNG: +ronchiABDOMEN: Bowel sounds normoactive, soft, non-tender EXTREMITIES: no clubbing, cyanosis, or edema. LYMPH NODES: No cervical and supra-clavicular lymphadenopathy. NEURO: Awake, alert and oriented x 3, no focalization. DIAGNOSTIC DATA: CARDIOPULMONARY TEST: Last Pulmonary function Test showed: 03/2019Impression 04/01/2019. Breathing capacity showed 1. Mild obstruction with FEV1 79 2. Suggestive asthma versus COPD 3. Ideally Complete Pulmonary Function test with pre and post Bronchodilator, Plethysmography/Lung Volume and DLCO diffusion for evaluation of obstructive or restrictive Lung disease. RADIOLOGIST IMAGING: CT Chest W - 08/18/23 - 1104 Report Status:Signed Chest CT, 08/20/2023. HISTORY: LUNG MASS. COMPARISON: 05/20/2023. FINDINGS: Mild bronchiectasis at the bases with basilar predominant bronchial wall thickening. A consolidative opacity with peripheral groundglass in the inferior right upper lobe demonstrated on the previous study has nearly completely resolved. There is only a small amount of residual groundglass opacity in this area. Patchy patchy linear, groundglass, and groundglass nodular opacities at the right greater than left lung bases suggesting volume loss and small airways mucus plugging appears similar to the previous study. Small amount of stable curvilinear peripheral scarring in the anterolateral rightupper lobe. No pleural effusion. No pneumothorax. Mediastinum/deanna: Several mediastinal nodes have decreased in size compared with the previous study. Vasculature: Normal caliber pulmonary arteries with no central filling defect. Mild atheroscleroticcalcification. Cardiac: Normal. Chest wall: No mass or lymphadenopathy. Limited abdomen: Punctate calcification in the right hepatic lobe suggestive of prior granulomatousdisease. Bones: Mild degenerative changes of the spine. An epidural catheter or electrode is incidentally noted. IMPRESSION: The previously demonstrated area of masslike consolidation peripheral groundglass in the right upper lobe has nearly completely resolved and was presumably infectious/inflammatory. ASSESSMENT: ICD-10-CM ICD-9-CM 1. Moderate persistent asthma, unspecified whether complicated J45.40 493.90 Pulmonary function testing: Spirometry with Bronchodilator, Carbon Monoxide Diffusing Capacity PLAN: Assessment & Plan 1. Asthma. She reports using Trelegy, which helps with symptoms such as wheezing and coughing. She also uses albuterol and Ventolin once or twice a day when experiencing wheezing. No changes to her current medication regimen are necessary at this time. A pulmonary function test will be conducted to further evaluate her condition. Smoking cessation emphasize- she is not eligible for LDCT. I will repeat PFT Follow-up The patient will follow up in 6 months. - Follow up with Shabnam Jernigan MD for the other co-morbilities. - I spend 31 Minutes on this visit. The patient was educated about his problems, where assessment and plan was reviewed and explained, All questions were answered. RETURN TO THE NEXT VISIT: Based on physical exam, symptomatology, tests requested and baseline pulmonary evaluation/disease, I instructed the patient to come back to see me in 6 mths for reevaluation after the test has been done or earlier if the patient needed. Thanks Shabnam Jernigan MD for allowing me to have the opportunity to assist in the care of this patient. I have obtained verbal consent from Divine Bynum prior to the recording. I have advised Divine Bynum that she may refuse the recording and require the recording to be turned off at any time during this encounter. documented in this encounter Plan of Treatment Upcoming Encounters Date Type Department Care Team (Latest Contact Info) Description 07/21/2024 11:00 AM EDT Ancillary Procedure Pulmonolgy - [place] [address] [facility] [address] [place] [phone] Yessica Escalante 07/21/2024 2:45 PM EDT Evaluation [facility] Speech Therapy [address] [facility] [address] [facility] [address] [place] [phone] Malinda Healy, WOODWORKING MACHINE OFFBEARER 08/25/2024 10:00 AM EDT Appointment [facility] for [place] Outpatient Rehabilititation - [place] 175 [facility] [address] [place] [phone] 08/25/2024 10:30 AM EDT Office Visit [facility] for [place] - [place] [address] [facility] [address] [facility] [address] [place] [phone] Ghazala Lowry, VIJAYA [address] [place] [address] [place] [address] 12/21/2024 9:45 AM EDT Office Visit Pulmonolgy - [place] 175 [facility] [address] [place] [phone] Luz Maria Mayo MD 175 [facility] [address] [place] [address] Scheduled Orders Name Type Priority Associated Diagnoses Orde r Schedule Pulmonary function testing: Spirometry with Bronchodilator, Carbon Monoxide Diffusing Capacity PFT Routine Moderate persistent asthma, unspecified whether complicated 1 Occurrences starting 06/22/2024 until 06/22/2025 documented as of this encounter Visit Diagnoses Diagnosis Moderate persistent asthma, unspecified whether complicated- Primary documented in this encounter Historical Medications * This list may reflect changes made after this encounter. fluticasone-umec lidinium-vilante rol (Trelegy Ellipta) 200-62.5-25 mcg inhaler Inhale 1 puff (200 mcg total) by mouth 1 (one) time each day. Rinse mouth with water after use to reduce aftertaste and incidence of candidiasis. Do not swallow. added in this encounter Care Teams Tool Technician Relationship Specialty Start Date End Date Shabnam Jernigan MD [address] [phone] PCP - General Internal Medicine 03/04/24 documented as of this encounter
--- OUTSIDE RECORDS SUMMARY | 2024-07-05 13:43 | XMS_ITS | Referral Summary ---
Author Organization [facility] Address [address] [place] [address] Care Team Providers Care Notch Grinder Name Role Phone Erin López A Primary [...] EDT): PLAN: 1. Continue follow up with Beeminder. 2. She will continue with Baclofen TID Assessment & Plan (04/17/2020 4:49 PM EST): PLAN: 1. Continue follow up with Beeminder. 2. She will continue with Baclofen TID [...] EDT): PLAN: 1. We will discuss with Beeminder adjustment of the bolus at 4 AM [...] dose 657.0 mcg/day. Estimated FÉLIX 16 months. Grimes volume 15.5 mL. Low reservoir alarm date [...] will follow-up in April for pump refill. Social History Tobacco Use Types Packs/Day Years [...] 12/04/2016 5:16 PM EDT Plan of Treatment Not on file Procedures * Due to [place] mNectar law, this organization might not be sharing negative HIV tests. Procedure Name Priority Date/Time Associated Diagnosis Comments HEPATITIS C ANTIBODY W/REFLEX TO HCV RNA, QUANTITATIVE PCR Routine 06/07/2015 2:47 PM EST CD4 COUNTS Routine 02/04/2014 12:03 PM EDT from Last 3 Months or Most Recently Relevant to Health Maintenance Results * Due to [place] mNectar law, this organization might not be sharing negative HIV tests. * Hepatitis C Antibody w/Reflex to HCV RNA, Quantitative PCR (06/07/2015 2:47 PM EST) Hepatitis C Antibody NON-REACTI VE NON-REACT [facility] Signal To Cut-Off 0.02 <1.00 [facility] 06/07/2015 2:47 PM EST 06/07/2015 4:03 PM EST Naomi Almendarez MD LAB BLOOD ORDERABLE S Final Result [facility] from Last 3 Months or Most Recently Relevant to Health Maintenance Insurance [facility] Care Teams Notch Grinder Relationship Specialty Start Date End Date Erin López PCP - General 11/14/16
--- OUTSIDE RECORDS SUMMARY | 2024-07-05 13:43 | XMS_ITS | Encounter Summary ---
Author Organization [facility] Address [address] [place] [address] Care Team Providers Care Vp Scientific Name Role Phone Shabnam Jernigan MD Primary Care Provider [phone] Encounter Details Date Type Department Care Team (Late st Contact Info) Description 02/09/2024 1:40 PM EDT Hospital Encounter TH HISTORIC ENCOUNTERS EASTERN CONVERSION ONLY Ghazala Lowry, VIJAYA [address] [facility] [place] [address] Social History Tobacco Use Types Packs/Day Years [...] Sign Reading Time Taken Comments Blood Pressure 161/83 02/09/2024 2:16 PM EDT Sit ting Left arm Pulse - - Temperature - - Respiratory Rate - - Oxygen Saturation - - Inhaled Oxygen Concentration - - Weight 50.8 kg (112 lb) 11/24/2023 1:17 PM EDT Height 157.5 cm (5' 2 ) 08/21/2023 12:2 0 PM EDT Body Mass Index 20.49 08/21/2023 12:20 PM EDT documented in this encounter Progress Notes * VIJAYA Holt - 02/09/2024 1:30 PM EDT [facility] FOR MULTIPLE SCLEROSIS Cc: MS HPI: Patient is a 48 y.o. year old female who presents for follow-up regarding ongoing management of multiple sclerosis. Disease Summary Date of onset/Initial symptom presentation: 2012 Date of diagnosis of MS: 2012 Disease course at onset: relapsing Current disease course: relapsing Last MS exacerbation: Previous disease therapies(reason for switch): rituximab Current disease therapy: Ocrevus Most recent MRI Brain: 02/2022 (stable) Most recent MRI Cervical spine: 03/26/22 (possible increase in size and number of lesions) Most recent MRI Thoracic spine: 02/2022- possible T1-T2 lesion CSF: not performed JCV serology result and date: MS mimickers: EDSS: 3.0 (02/18/2022) Interval history Patient returns for follow up visit. She continues Ocrevus for disease modifying therapy and next infusion is scheduled for 03/05/2024. She denies symptoms suggestive of new demyelinating event since she was last seen in the office. She notes that she is more tired than ever. She has been getting spasms in her L hand and leg. No change in bladder symptoms-urgency with occasional incontinence continues. She continues with urology. She denies recent infections. She was recently treated with abx with Dr. Mayo- pt states congestion and wheezing but no pneumonia. Last visit history: She denies new neurological symptoms/symptoms suggestive of demyelinating event since she was last seen in the office. She notes that she is experiencing muscle spasms in LLE now (previously mostly RLE). She feels likeshe needs an increase in intrathecal baclofen. She has been experiencing numbness in hands and feet. She feels that she noted improvement in symptoms after her initial Ocrevus infusion, but not after the most recent infusion. She did not notice any improvemen in symptoms after this infusion She is scheduled to see Dr. Mayo (pulmology in Dec). Review of Systems Constitutional: Positive for fatigue. Respiratory: Positive for chest tightness. Genitourinary: Positive for urgency. Musculoskeletal: Positive for gait problem. All other systems reviewed and are negative. Patient Active Problem List Diagnosis SNOMED CT(R) ??? Depression DEPRESSIVE DISORDER ??? Myelopathic pain syndrome THALAMIC SYNDROME ??? Depression DEPRESSIVE DISORDER ??? Spasticity SPASTICITY ??? Fatigue FATIGUE ??? MS (multiple sclerosis) (HCC) MULTIPLE SCLEROSIS Current Outpatient Medications: ??? azelastine (OPTIVAR) 0.05 % ophthalmic solution, , Disp: , Rfl: ??? baclofen (LIORESAL) 10 MG tablet, TAKE 2 TABLETS BY MOUTH 3 TIMES A DAY, Disp: 540 tablet, Rfl:5 ??? clonazePAM (KlonoPIN) 1 MG tablet, 1/2 tab am, 1 tab @ 2:00, 1/2 tab at bedtime, Disp: , Rfl: ??? DULoxetine (CYMBALTA) DR capsule 60 mg, Take 90 mg by mouth daily. , Disp: , Rfl: ??? ergocalciferol (VITAMIN D2) capsule 51363 units, Take 1 capsule (50,000 Units total) by mouth once a week., Disp: 12 capsule, Rfl: 0 ??? fluticasone-vilanterol (Breo Ellipta) 100-25 MCG/INH inhaler, 1 inhalation. by Inhaled route daily., Disp: , Rfl: ??? modafinil (PROVIGIL) 200 MG tablet, 1 po bid, Disp: 60 tablet, Rfl: 5 ??? montelukast (SINGULAIR) 10 MG tablet, TAKE 1 TABLET BY MOUTH EVERY DAY AT BEDTIME FOR 360 DAYS,Disp: , Rfl: ??? Ocrelizumab (OCREVUS IV), Inject into the vein., Disp: , Rfl: Neuro Exam BP 161/83 (BP Location: Left arm, Patient Position: Sitting) Temp 96.9 ??F (36.1 ??C) (Temporal) There is no height or weight on file to calculate BMI. General: A&Ox3 Cranial Nerves: PERRL, EOMI without nystagmus, facial strength symmetric, no facial droop, tongue protrusion midline, speech clear, shoulder shrug symmetric. Motor: strength 5/5 bilateral UE ,R hip flexion 4+/5. Increased tone bilateral LEs, right ceramic capacitor processor strength 4/5, finger spread 4/5. Sensory: temperature, light touch, and vibratory sense intact throughout Reflexes: 2+/4+ bilateral biceps, 2+/4+ bilateral patellar, R plantar flexor Cerebellar: FTN without dysmetria or ataxia bilaterally, normal Lucinda, no dysdiadochokinesia, negative Rhomberg Gait: spastic gait, drags L leg, using cane 25 foot timed walk: Not performed today (9.9, 9.8 last visit) A/P: Multiple Sclerosis: Divine Bynum is a 48 year-old female treated with Ocrevus for disease modifying therapy. She notes gradual worsening of symptoms including fatigue, mobility. Will continue to work on symptomatic management. Referral has been entered for physiatry for management of baclofen pump. A. Disease modifying therapy and diagnostic plan: - no change in treatment plan right now (Ocrevus) however considering changing to Kesimpta. -Brain and cervical spine MRIs without contrast will be performed on an annual basis to assess for radiologic stability B. Symptomatic therapy plan: Gait difficulty: Pending PT order for scooter evaluation Spasticity: Patient continues oral baclofen as well as baclofen pump. Referral previously entered for physiatr for continued management of intrathecal baclofen dosing.y Fatigue: Increase Provigil to 200 mg twice daily Urinary dysfunction: Has been referred to [facility] Urology Patient was encouraged to call the office with any questions or concerns. Follow-up in 3-4 months or sooner as needed The patient and I discussed the clinical picture during today's appointment. Additional time was spent prior to the actual appointment reviewing records, lab values and imaging results and preparing documentation for today's visit. There was also time spent following the in person visit documenting, arranging for further diagnostic testing and follow-up appointments. The entire time spent in thisprocess was greater than 30 minutes. The majority of the actual enhx-ey-addd visit was spent counseling the patient with respect to the current neurological picture. Ghazala Lowry PA-C documented in this encounter Plan of Treatment Upcoming Encounters Date Type Department Care Team (Latest Contact Info) Description 07/21/2024 11:00 AM EDT Ancillary Procedure Pulmonol - [place] 175 [facility] [address] [place] [address] Yessica Escalante 07/21/2024 2:45 PM EDT Evaluation [facility] Speech Therapy 175 [facility] [address] [place] [phone] Malinda Healy, DIRECTOR OF PSYCHOLOGY 08/25/2024 10:00 AM EDT Appointment [facility] [place] Outpatient Rehabilititation - [place] 175 [facility] [address] [place] [phone] 08/25/2024 10:30 AM EDT Office Visit [facility] for [place] - [place] 175 [facility] [address] [place] [phone] Ghazala Lowry, VIJAYA [address] [place] [address] [place] [address] 12/21/2024 9:45 AM EDT Office Visit Pulmonolgy - [place] 175 [facility] [address] [place] [phone] Luz Maria Mayo MD 175 [facility] [address] [place] [address] documented as of this encounter Visit Diagnoses Not on filedocumented in this encounter Care Teams Vp Scientific Relationship Specialty Start Date End Date Shabnam Jernigan MD PCP - General Internal Medicine 10/23/20 03/03/24 documented as of this encounter
--- OUTSIDE RECORDS SUMMARY | 2024-07-05 13:43 | XMS_ITS | Encounter Summary ---
Author Organization [facility] Address [address] [place] [address] Care Team Providers Care Retail Leasing Agent Name Role Phone Shabnam Jernigan MD Primary Care Provider Encounter Details Date Type Department Care Team [...] 11:00 AM EDT Ancillary Procedure Pulmonolgy [place] [address] [place] [phone] Yessica Escalante 07/21/2024 2:[address] [facility] Speech Therapy [address] [place] [address] Malinda Healy, 4 H YOUTH DEVELOPMENT SPECIALIST 08/25/2024 10:00 AM EDT Appointment [facility] [place] Outpatient Rehabil[facility] - [place] [address] [place] [phone] 08/25/2024 10:30 AM EDT Office Visit [facility] [place] - [place] [address] [place] [phone] Ghazala Lowry, VIJAYA [address] [place] [address] [place] [address] 12/21/2024 9:45 AM EDT Office Visit Pulmonolgy - [place] [address] [place] [phone] Luz Maria Mayo MD [address] [place] [phone] documented as of this encounter Visit Diagnoses Not on filedocumented in this encounter Care Teams Retail Leasing Agent Relationship Specialty Start Date End Date Shabnam Jernigan MD PCP - General Internal Medicine 10/23/20 03/03/24 documented as of this encounter
== END 2024-07-05 12:07 | disposition home or self-care (01) ==
PROVIDERS: PCP Internal Medicine; Visit Provider Clinical Nurse Specialist Psychiatric/Mental Health
DX: F33.1 Major depressive disorder, recurrent, moderate (principal); F41.1 Generalized anxiety disorder; G47.00 Insomnia, unspecified
CPT/HCPCS: 99213

== ENCOUNTER 2024-11-02 16:56 | Outpatient (AMB) | payer OTHER, SELFPAY ==
--- OUTSIDE RECORDS SUMMARY | 2024-02-25 08:00 | XMS_ITS | Encounter Summary ---
Author Organization [facility] Address [address] [place] [address] Care Team Providers Care Chaplain Name Role Phone Shabnam Jernigan MD Primary Care Provider [phone] Encounter Details Date Type Department Care Team (Late st Contact Info) Description 02/25/2024 8:00 AM EDT Hospital Encounter TH HISTORIC ENCOUNTERS EASTERN CONVERSION ONLY Social History Tobacco Use Types Packs/Day Years Used Date Smoking Tobacco: Some Days Smokeless Tobacco: Never Comments:Smoking 3 cigs monserrat y Alcohol Use Standard Drinks/Week Comments Yes 0 (1 standard drink = 0.6 oz pur e alcohol) Housing Instability Answer Date Recorde d Are you worried that in the next 2 months you may not have stable housing? No 09/14/2024 Food Access & Nutrition Answer Date Rec orded Do you have access to a vari ety of food including fruits and vegetables? Yes 09/14/2024 Access to Healthcare Answer Date Record ed Within the last 3 months, ho w many times did you visit the emergency department for your medical care? 0 09/14/2024 Health Literacy Answer Date Recorded How often do you need to hav e someone help you when you read instructions, pamphlets, or other written material from your doctor or pharmacy? Rarely 09/14/2024 Caregiver: How often do you need to have someone help you when you read instructions, pamphlets, or other written material from your doctor or pharmacy? Not on file 09/14/2024 Financial Risk Answer Date Recorded How hard is it for you to pa y for the very basics like food, housing, medical care, and air conditioning / heating? Hard 09/14/2024 Transportation Answer Date Recorded Has the lack of transportati on kept you from meetings, work, or from getting things needed for daily living? No Has the lack of transportati on kept you from medical appointments or from getting medications? No 09/14/2024 Social Isolation Answer Date Recorded How often do you feel lonely or isolated from those around you? Sometimes 09/14/2024 Food Risk Answer Date Recorded Within the past 12 months we worried whether our food would run out before we got money to buy more. Never true 09/14/2024 Within the past 12 months th e food we bought just didn't last and we didn't have money to get more. Never true 09/14/2024 Dependent Care Answer Date Recorded Do you need help finding or paying for care for your loved ones. For example, child and adolescent therapist or elderly care for an older adult? No 09/14/2024 Education Answer Date Recorded Do you think completing more education or training, like finishing a GED, going to college, or learning a trade, would be helpful for you? N/A 09/14/2024 Employment and Income Answer Date Recor ded During the last four weeks, have you been actively looking for work? No 09/14/2024 Living Situation Answer Date Recorded What is your living situation? 0 09/14/2024 Comments Unknown Sex and Gender Information Value Date Recorded Sex Assigned at Not on file Legal Sex Female 2:14 AM EST Gender Identity Not on file Sexual Orientation Not on file documented as of this encounter Last Filed Vital Signs Vital Sign Reading Time Taken Comments Blood Pressure - - Pulse - - Temperature - - Respiratory Rate - - Oxygen Saturation - - Inhaled Oxygen Concentration - - Weight 50.8 kg (112 lb) 11/24/2023 1:17 PM EDT Height 157.5 cm (5' 2 ) 08/21/2023 12:20 PM EDT Body Mass Index 20.49 08/21/2023 12:20 PM EDT documented in this encounter Plan of Treatment Upcoming Encounters Date Type Department Care Team (Late st Contact Info) Description 11/19/2024 1:00 PM EDT Office Visit Internal Medicine - [address] [place] [address] Britany Goodman NP [address] [facility] [address] [place] [address] 12/21/2024 9:45 AM EDT Office Visit Pulmonolgy - [place] [address] [facility] [address] [place] [address] Luz Maria Mayo MD 175 [facility] [address] [place] [address] 12/24/2024 7:30 AM EDT Office Visit [facility] - [place] [address] [place] [phone] Ghazala Lowry PA [address] [facility] [address] [place] [address] 01/27/2025 8:30 AM EDT Consult Vascular Surgery - [place] [address] [place] [address] Brenda Almanzar PA [address] [facility] [address] [place] [address] 02/22/2025 10:00 AM EDT Appointment [facility] Outpatient [facility]habil[facility]itation - [place] [address] [id number] documented as of this encounter Visit Diagnoses Not on filedocumented in this encounter Care Teams Chaplain Relationship Specialty Start Date End Date Shabnam Jernigan MD PCP - General Internal Medicine 10/23/20 03/03/24 documented as of this encounter
--- NOTE | 2024-11-02 16:36 | A.OFFPSYCH_ITS ---
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 Allergies No Known Allergies Allergy (Verified 07/06/21 13:40) Medication List - Last Reconciled 11/02/24 by Sabiha Ramirez APRN albuterol sulfate mg inhalation Q4H PRN albuterol sulfate 90 mcg/actuation 2 puffs inhalation Q6H PRN baclofen 20 mg PO TID clonazepam 1 mg PO TID duloxetine 120 mg (2 x 60 mg) PO DAILY fluticasone furoate-vilanterol 200-25 mcg/dose (Breo Ellipta) 1 ea inhalation DAILY modafinil 200 mg PO DAILY montelukast 10 mg PO DAILY oxybutynin chloride ER 5 mg PO DAILY oxybutynin chloride ER 10 mg PO DAILY sennosides (senna) 8.6 mg PO DAILY zolpidem ER 6.25 mg PO BEDTIME PRN HPI- Psychiatric Chief Complaint: f/u consultation HPI Narrative: Pt seen via telehealth appt for follow up re: depression, anxiety, insomnia. Pt reports stable mood overall although sometimes she feels down due to her MS symptoms; She would like t be able to take her 13 yr old daughter on outings but she doesn't have the stamina. Pt reports the meds help; She is consistent with cymbalta 60 mg BID and clonzepam 1mg TID. she reports coping well overall; she has less anxiety. she is still having trouble sleeping; she takes the lunesta 1mg at bedtime and falls sleep for 1-2 hours and then wakes up again. she has used ambien which does help her sleep but she is incontinent with it. She denies SI and HI. 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 No IPLOC no current therapist-on wait list Subjective Subjective Subjective Medication Compliance: Yes Side effects from medications: No Review of Systems Medical Review of Systems: unchanged Mental Status Exam Mental Status Exam Patient Orientation: Person, Place, Time and Situation Level of Consciousness: Awake Patient Behavior: Appropriate Mood Description: Calm Affect Description: Calm Patient Cognition Impaired: No Ability to Follow Directions: Good Speech Pattern: Clear Memory Description: Intact Hallucinations: None Delusions: Not Present Thought Process: Intact and Goal Oriented Thought Content: positive for Intact and positive for Goal Oriented Judgement: Good Telehealth Telehealth Telehealth Platform: Other (please specify) (magdaleno.) Location of provider rendering services: practice address Location of patient: address on file Patient Identification confirmed using: Name, : Yes Telehealth method: video Patient verbally consented to treatment: Yes Patient verbally consented to billing insurance company: Yes Patient informed of any privacy concerns related to visit: Yes Minutes spent on Phone/Video with Pt.: 30 Assessment and Plan Assessment & Plan (1) JESSENIA (generalized anxiety disorder): Status: Acute Code(s): F41.1 - Generalized anxiety disorder (2) Insomnia disorder with non-sleep disorder mental comorbidity: Status: Acute Code(s): G47.00 - Insomnia, unspecified (3) Major depressive disorder, recurrent, moderate: Status: Acute Code(s): F33.1 - Major depressive disorder, recurrent, moderate Plan continue cymbalta 60mg BID continue clonazepam 1 mg TID Increase lunesta to3 mg at bedtime add melatonin 1 mg at bedtime return in 3 months for follow up Medications: New eszopiclone (Lunesta) 3 mg PO BEDTIME 30 tabs 3RF melatonin 1 mg PO BEDTIME PRN 30 tabs 3RF sleep Refilled clonazepam 1 mg PO TID 90 tabs 4RF duloxetine 120 mg (2 x 60 mg) PO DAILY 60 caps 3RF Discontinued zolpidem ER Discontinued Reason: Doctor's Order 6.25 mg PO BEDTIME PRN 30 tabs 0RF sleep Counseling and coordination of Care Pt. Self Management counseling: Mod caffeine/ETOH intake, Sleep hygiene and General coping skills Medication management counseling: Effectiveness, Side effects, Dosing range, Duration, Drug interaction and Adherence Diagnosis and Prognosis Counseling: Accuracy of diagnosis, Prognosis over time, Impact of diagnosis on life functions, Impact of family relationship, P roblematic behaviors secondary to diagnosis and Adequacy of current interventions Details: I spent 35 minutes reviewing the record, seeing the patient and documenting in the medical record. Counseling provided to the patient/caregiver as outlined below. Addressed patient/caregiver concerns regarding current medication regime including effective adherence. Addressed patient/caregiver concerns regarding diagnosis and prognosis including accuracy of diagnosis, prognosis over time, impact of diagnosis. Addressed patient/caregiver concerns regarding impact of recent stressors. [facility] Medical History (Updated 07/05/24 @ 11:11 by Sabiha Ramirez APRN) Asthma Multiple sclerosis Surgical History (Updated 10/16/23 @ 10:14 by Sabiha Ramirez APRN) History of hip replacement Family History (Updated 07/06/21 @ 13:44 by RADHA King) Mother Diabetes Social History (Updated 07/06/21 @ 13:43 by RADHA King) Alcohol intake: current Alcohol intake frequency: a few times a month Alcohol type: beer Patient Tobacco Use Status: Never used Tobacco Social History: lives with youngest daughter who is in middle school and adult son; older daughter and her family recently moved in- very stressful; pts parents are very supportive Substance History: none Trauma History: none reported Coding Level of Care Code Tele Est Pt Level 4 (18143) Diagnoses JESSENIA (generalized anxiety disorder) F41.1 Insomnia disorder with non-sleep disorder mental comorbidity G47.00 Major depressive disorder, recurrent, moderate F33.1
--- OUTSIDE RECORDS SUMMARY | 2024-11-02 16:58 | XMS_ITS ---
Author Name [facility] Organization Unknown History of Medication Use Medication Directions Dispensed Refills Start Date End Date Status benzoyl peroxide (BENZAC AC) 10 % external wash Apply topically 2 (two) times a day. 5 active doxycycline (VIBRAMYCIN) 100 mg capsule Take 1 capsule (100 mg total) by mouth 2 (two) times a day. Take with at least 8 ounces (large glass) of water, do not lie down for 30 minutes after. Administer 2 hours before or after multivitamins, antacids, or other products containing polyvalent cations (i.e., calcium, iron, magnesium, selenium, 5 active azelastine (ASTELIN) 137 mcg (0.1 %) nasal spray USE 2 SPRAYS IN EACH NOSTRIL DAILY FOR 30 DAYS DIRECTED 5 active montelukast (SINGULAIR) 10 mg tablet TAKE 1 TABLET BY MOUTH AT BEDTIME FOR 360 DAYS. 5 active ergocalciferol (VITAMIN D-2) 1,250 mcg (50,000 unit) capsule Take 1 capsule (50,000 Units total) by mouth 1 (one) time per week. 5 active albuterol HFA (PROAIR HFA ; PROVENTIL HFA ; VENTOLIN HFA) 90 mcg/actuation inhaler INHALE 2 PUFFS INTO THE LUNGS EVERY 6 HOURS NEEDED FOR COUGH, WHEEZING, OR SHORTNESS OF BREATH. 4 active ocrelizumab (OCREVUS) 600 mg in sodium chloride (NS) 0.9 % 500 mL IVPB 600 mg, Intravenous, Once, On Fri02/25/24 at 0930, For 1 doseMust use in-line 0.22 micron filter. - Infusion Rate for first full 600 mg dose or reaction with previous infusion: Start at 40 mL/hr. Increase by 40 mL/hr every 30 minutes. Maximum rate: 200 mL/hr. Duration: 3.5 hours or longer. - Infu 4 02/25/20 completed sodium chloride 0.9% (NS) infusion 500 mL, Intravenous, Once, On Fri02/25/24 at 1000, For 1 doseAdminister at 999 mL/hr. 4 02/25/20 completed methylPREDNISolone sodium succinate (SOLU-Medrol) injection 125 mg 125 mg, Intravenous, Once, On Fri09/16/23 at 1100, For 1 doseGive 30 minutes prior to ocrelizumab. Administer over 2-3 minutes 4 09/16/19 completed ocrelizumab (OCREVUS) 300 mg in sodium chloride (NS) 0.9 % 250 mL IVPB 300 mg, Intravenous, Once, On Fri09/16/23 at 1100, For 1 doseMust use in-line 0.22 micron filter. Administer though a dedicated IV line. First 2 infusions (300 mg dose): Begin infusion at 30 mL/hr. Increase by 30 mL/hr every 30 minutes to a maximum rate of 180 ml/hr. Infusion duration: 2.5 hours or 4 09/16/19 completed ergocalciferol (VITAMIN D2) capsule 88803 units Take 1 capsule (50,000 Units total) by mouth once a week. 3 active modafinil (PROVIGIL) 200 MG tablet Take 1 tablet (200 mg total) by mouth daily. 2 active baclofen (LIORESAL) 10 mg tablet Take 2 tablets (20 mg total) by mouth. 2 active clonazePAM (KlonoPIN) 1 mg tablet TAKE 1/2 TABLET THREE TIMES A DAY 2 active clonazePAM (KlonoPIN) 1 MG tablet 1/2 tab am, 1 tab @ 2:00, 1/2 tab at bedtime 2 active albuterol 2.5 mg /3 mL (0.083 %) nebulizer solution Inhale 3 mL (2.5 mg total) by mouth. 2 active azelastine (OPTIVAR) 0.05 % ophthalmic solution 1 active oxybutynin XL (DITROPAN-XL) 5 mg 24 hr tablet 1 active modafiniL (PROVIGIL) 200 mg tablet Take 1 tablet (200 mg total) by mouth. 1 active DULoxetine (CYMBALTA) DR capsule 60 mg Take 90 mg by mouth daily. active fluticasone-umeclidini um-vilanterol (Trelegy Ellipta) 200-62.5-25 mcg inhaler Inhale 1 puff (200 mcg total) by mouth 1 (one) time each day. Rinse mouth with water after use to reduce aftertaste and incidence of candidiasis. Do not swallow. active fluticasone-vilanterol (Breo Ellipta) 100-25 MCG/INH inhaler 1 inhalation. by Inhaled route daily. active sodium chloride 0.9 % parenteral solution 250 mL with ocrelizumab 30 mg/mL solution Infuse into a venous catheter. active Problems Problem Status Onset Date Problem Type Date of Resoluti on Source Nicotine dependence, uncomplicated active 2019-04-01 ProblemAct [facility] Primary osteoarthritis of left hip active 2016-07-04 ProblemAct [facility] Atypical squamous cells of undetermined significance (ASCUS) on Papanicolaou smear of cervix active 2021-02-07 [facility]Act [facility] Depression active 2011-09-05 ProblemAct [facility] Constipation due to pain medication active 2015-06-16 ProblemAct [facility] Asthma active 2012-06-09 ProblemAct [facility] Spasticity active 2019-08-12 ProblemAct [facility] Liver lesion active 2013-10-11 ProblemAct [facility] Fatigue active 2019-08-12 ProblemAct [facility] Anxiety active 2011-11-29 ProblemAct [facility] GERD (gastroesophageal reflux disease) active 2013-12-03 ProblemAct [facility] Multiple sclerosis (CMS/HCC V24, CMS/HCC V28) active 2012-07-14 ProblemAct [facility] Myelopathic pain syndrome active 2019-08-12 ProblemAct [facility] MS (multiple sclerosis) active 2020-03-14 ProblemAct [facility] Depression active 2019-08-12 ProblemAct [facility] G Immunizations Vaccine Date Source Lot Number Status [facility] SARS-CoV-2 COVID-19, mRNA, LNP-S, preservative free 09/02/2020 [facility] [id number] completed [facility] SARS-CoV-2 COVID-19, mRNA, LNP-S, preservative free 08/12/2020 [facility] [id number] completed
--- OUTSIDE RECORDS SUMMARY | 2024-11-02 16:58 | XMS_ITS | Clinical Summary ---
Author Organization [facility] Address [address] [place] [address] Care Team Providers Care Cell Manager Name Role Phone Erin López A [...] EDT): PLAN: 1. Continue follow up with [email or web address]. 2. She will continue with Baclofen TID Assessment & Plan (04/17/2020 4:49 PM EST): PLAN: 1. Continue follow up with [email or web address]. 2. She will continue with Baclofen TID [...] EDT): PLAN: 1. We will discuss with [email or web address] adjustment of the bolus at 4 AM [...] dose 657.0 mcg/day. Estimated FÉLIX 16 months. [place] volume 15.5 mL. Low reservoir alarm date [...] 119 08/26/2022 11:15 AM EDT Temperature 36.4 C (97.6 F) 08/26/2022 11:15 AM EDT Respiratory Rate 17 08/26/2022 11:15 AM EDT [...] 2023-2 5 season) 2023 02/28/2021, 09/02/2020, 08/12/2020 Cervical Cancer Screening 01/26/2024 Pap Smear 01/26/2024 01/25/2021 Alcohol/Substance Use Screening 04/28/2024 Depression Screening and Follow-Up 04/28/2024 Social Drivers of Health Malia ual Screening 04/28/2024 Influenza Vaccine (#1) 2024 2, 04/28/2011, 02/13/2011 DTaP,Tdap,and Td Vaccines (5 - Td or Tdap) 02/06/2028 02/05/2018, 10/31/2015, 05/27/2011, Additional history exists RSV Vaccine (60+ years old a nd patients) (1 - 1-dose 75+ series) 2048 HIV Screening Completed 06/07/2015, 02/04/2014 Hepatitis C Screening Completed 06/07/2015, 014 Procedures * Due to [place] PFSweb law, this organization might not be sharing negative HIV tests. Procedure Name Priority Date/Time Associated Diagnosis Comments HEPATITIS C ANTIBODY W/REFLEX TO HCV RNA, QUANTITATIVE PCR Routine 06/07/2015 2:47 PM EST CD4 COUNTS Routine 02/04/2014 12:03 PM EDT from Last 3 Months or Most Recently Relevant to Health Maintenance Results * Due to [place] PFSweb law, this organization might not be sharing negative HIV tests. * Hepatitis C Antibody w/Reflex to HCV RNA, Quantitative PCR (06/07/2015 2:47 PM EST) Hepatitis C Antibody NON-REACTI VE NON-REACT [facility] Signal To Cut-Off 0.02 <1.00 [facility] 06/07/2015 2:47 PM EST 06/07/2015 4:03 PM EST us Naomi Almendarez MD LAB BLOOD ORDERABLE S Final Result [facility] from Last 3 Months or Most Recently Relevant to Health Maintenance [place] [address] [address] [place] [address] [employer] Care Teams Cell Manager Relationship Specialty Start Date End Date Erin López PCP - General 11/14/16
--- OUTSIDE RECORDS SUMMARY | 2024-11-02 16:58 | XMS_ITS | Clinical Summary ---
Author Organization [facility] Address [address] [place] [address] Care Team Providers Care Preschool Teacher Assistant Name Role Phone Shabnam Jernigan MD Primary Care Provider [phone] Allergies No known active allergies Medications Medication [...] 0 06/08/2021 Active ergocalciferol (VITAMIN D2) capsule 71801 units Take 1 capsule (50,000 Units total) [...] 54 02/25/2024 2:40 PM EDT Temperature 36.2 C (97.2 F) 02/25/2024 2:40 PM EDT Respiratory Rate 16 02/25/2024 2:40 PM EDT [...] of 2) 07/10/2023 COVID-19 Vaccine (3 - season) 2023 09/02/2020, 08/12/2020 Influenza Vaccine (#1) 2024 DTap / Tdap / Td (5 - Td or Tdap) 02/06/2028 02/05/2018, 10/31/2015, 05/27/2011, Additional history exists Hepatitis B Vaccines Completed 02/13/2012, 11/06/2011, 10/07/2011 RSV Ped < 20 months Aged Out No longe r eligible based on patient's age to complete this topic Care Teams Preschool Teacher Assistant Relationship Specialty Start Date End Date Shabnam Jernigan MD [address] [phone] PCP - General Internal Medicine 10/23/22
== END 2024-11-02 16:57 | disposition home or self-care (01) ==
LOC: HO.HOP 16:56
PROVIDERS: PCP Internal Medicine; Visit Provider Clinical Nurse Specialist Psychiatric/Mental Health
DX: F41.1 Generalized anxiety disorder (principal); G47.00 Insomnia, unspecified; F33.1 Major depressive disorder, recurrent, moderate
CPT/HCPCS: 99214